=== PATIENT | female | born 1965 | race Caucasian/White ===

== ENCOUNTER 2017-04-20 15:01 | Emergency (ER) | payer OTHER ==
[~2017-04-20] VITALS: Ht 149.9 cm; Wt 45.6 kg
[~2017-04-20 15:01] MED LIST: ALBU17IN INH; CETI10TA PO; FLUO40CA PO; GUAI5ELAC PO; LEVA1TAB2 PO; LISI-538 PO; LISI5TAB OR; NEUR600T PO; PROZ20CA11 PO; TRAZ10TA PO
[2017-04-20] MEDS ORDERED: MEDR10TA PO (15:09)
[2017-04-20] MEDS ORDERED: HYDR-3713 PO (15:09)
[2017-04-20] MEDS ORDERED: methylPREDNISolone INJ 125 MG/2 ML VIAL (J2930) IM ONE (15:45)
[2017-04-20] MEDS ORDERED: IPRATROPIUM 0.5MG/ALBUTEROL 2.5MG INH SOL UD 3ML (DUONEB)(J7620) NEB ONE (15:45)
--- NOTE | 2017-04-20 16:18 | REP ---
Clinical: Wheezing and cough . Comparison: 08/29/2012 . Technique: PA and lateral. Findings: The mediastinum and cardiac silhouette are normal. The lung valdes demonstrate chronic changes and without acute consolidation, effusion, or pneumothorax. The skeletal structures are intact and normal. Impression: 1. No acute cardiopulmonary process. Signed by Dimas Bravo MD 04/20/2017 04:09 P
[2017-04-20] MEDS ORDERED: PRED20TA PO (16:51)
[2017-04-20] MEDS ORDERED: TESS100C PO (16:51)
[2017-04-20 16:58] VITALS: BP 117/72
== END 2017-04-20 17:10 | disposition home or self-care (01) ==
LOC: M ED 15:01
DX: J06.9 Acute upper respiratory infection, unspecified (principal); F17.200 Nicotine dependence, unspecified, uncomplicated; Z59.0 Homelessness; H92.01 Otalgia, right ear; I10 Essential (primary) hypertension; F32.9 Major depressive disorder, single episode, unspecified; F41.9 Anxiety disorder, unspecified; Z87.09 Personal history of other diseases of the respiratory system; Z79.899 Other long term (current) drug therapy

== ENCOUNTER 2017-04-29 14:30 | Emergency (ER) | payer OTHER ==
[~2017-04-29] VITALS: Ht 149.9 cm; Wt 45.1 kg
[~2017-04-29 14:30] MED LIST changes: +HYDR-3713 PO; +MEDR10TA PO; +PRED20TA PO; +TESS100C PO
[2017-04-29 14:31] VITALS: BP 142/83
[2017-04-29] MEDS ORDERED: AMOX875T PO (16:35)
[2017-04-29] MEDS ORDERED: NORCOTAB PO (16:35)
[2017-04-29] MEDS ORDERED: MAGIC MOUTHWASH SUSPENSION BTL SS ONE (16:45)
== END 2017-04-29 16:50 | disposition home or self-care (01) ==
LOC: M ED 14:30
DX: H66.91 Otitis media, unspecified, right ear (principal); K08.9 Disorder of teeth and supporting structures, unspecified; Z79.899 Other long term (current) drug therapy

== ENCOUNTER → 2017-05-02 | Outpatient (CLI) | payer OTHER ==
[~2017-05-02] MED LIST changes: +AMOX875T PO; +NORCOTAB PO
[2017-05-02 17:16] LABS: ALBUMIN 3.3 GM/DL (3.2-5.2); ALBUMIN/GLOBULIN RATIO 1.03 (1.00-1.93); ALKALINE PHOSPHATASE 62 U/L (45-117); ALT/SGPT 26 U/L (12-78); ANION GAP 4 MEQ/L (8-16); AST/SGOT 18 U/L (15-37); BILIRUBIN,TOTAL 0.2 MG/DL (0.2-1.0); BLOOD UREA NITROGEN 12 MG/DL (7-18); CALCIUM LEVEL 8.6 MG/DL (8.5-10.1); CARBON DIOXIDE LEVEL 30 MEQ/L (21-32); CHLORIDE LEVEL 107 MEQ/L (98-107); CHOLESTEROL LEVEL 174 MG/DL (<200); CREATININE FOR GFR 0.62 MG/DL (0.55-1.02); GLOMERULAR FILTRATION RATE > 60.0 (>51); GLUCOSE, FASTING 119 MG/DL (70-105); POTASSIUM SERUM 4.3 MEQ/L (3.5-5.1); SODIUM LEVEL 141 MEQ/L (136-145); TOTAL PROTEIN 6.5 GM/DL (6.4-8.2); TRIGLYCERIDES LEVEL 232 MG/DL (<150)
[2017-05-02 17:35] LABS: BASO # 0.1 K/mm3 (0.0-0.2); BASO % 0.7 % (0.0-1.0); EOS # 0.2 K/mm3 (0.0-0.50); EOS % 2.2 % (0.0-3.0); MEAN CORPUSCULAR HEMOGLOBIN 32.1 pg (27.0-33.0); MEAN CORPUSCULAR HGB CONC 33.2 g/dl (32.0-36.5); MEAN CORPUSCULAR VOLUME 96.8 fl (80.0-96.0); MONO # 0.3 K/mm3 (0.0-0.8); MONO % 3.4 % (0.0-5.0); NEUTROPHILS # 5.8 K/mm3 (1.8-7.7); NEUTROPHILS % 68.5 % (36.0-66.0); RED CELL DISTRIBUTION WIDTH 13.3 % (11.5-14.5); WHITE BLOOD COUNT 8.5 K/mm3 (4.0-10.0)
== END ==
LOC: M LAB 15:47
PROVIDERS: ATTEND Physician Assistant
DX: I10 Essential (primary) hypertension (principal); J30.9 Allergic rhinitis, unspecified; E55.9 Vitamin D deficiency, unspecified; Z72.0 Tobacco use

== ENCOUNTER → 2017-05-22 | Outpatient (CLI) | payer OTHER ==
[~2017-05-22] MED LIST changes: +GASTROGRAFIN SOLUTION 30ML (Q9963) As Ordered ONE; +ISOVUE-370 76% 100ML VIAL (Q9967) As Ordered ONE
--- NOTE | 2017-05-22 13:28 | REPMRS ---
Patient History The patient states she has not had a clinical breast exam in over a year. No known family history of cancer. Priors done at [facility] Digital Mammo Screening Bilat: May 22, 2017 - Exam #: [id number] Bilateral CC and MLO view(s) were taken. Technologist: Kesha Hinkle, Technologist FINDINGS: The breast tissue is extremely dense which could obscure a lesion on mammography. There has been no change in the appearance of the mammogram from the prior studies. There is a moderate amount of dense residual fibroglandular tissue which is fairly symmetric. There is no interval development of dominant mass, architectural distortion, or clustered microcalcification typical of malignancy. There are scattered, small, benign calcifications of doubtful clinical significance. No significant changes when compared with prior studies. ASSESSMENT: BI-RADS/ACR category 2 mammogram. Benign finding(s). Recommendation Routine screening mammogram in 1 year (for women over age 40). This mammogram was interpreted with the aid of an FDA-approved computer-aided dectection system. A. Negative x-ray reports should not delay biopsy if a dominant or clinically suspicious mass is present. B. Four to eight percent of cancers are not identified by mammography. C. Adenosis and dense breast may obscure an underlying neoplasm. Electronically Signed By: Victor Manuel Corbett MD 05/22/17 [id number]
--- NOTE | 2017-05-23 03:00 | REP ---
Clinical: Generalized abdominal pain and diarrhea. Technique: Axial contrast enhanced images from the lung bases to the pubic symphysis using oral and 100 ml Isovue 370 intravenous contrast material along with precontrast and delayed images of the abdomen with coronal and sagittal re-formations. Findings: Lung bases are clear. Visualized heart and pericardium are normal. Subcentimeter benign appearing hemangioma in the anterior segment right lobe of the liver is identified. No further hepatic lesions are appreciated. Spleen, pancreas, gallbladder, and bilateral adrenal glands are normal. The kidneys demonstrate mild areas of cortical scarring bilaterally (right greater than left) without further obvious urinary tract pathology. The enteric system is without obstruction or acute inflammatory process. Pelvis demonstrates normal bladder and age-appropriate uterus/adnexa. However subtle underlying myomatous changes to the uterus cannot be excluded. No pelvic fluid or ascites. No free air. No adenopathy. Atherosclerotic changes of the aorta and vasculature noted without obvious aneurysm or dissection. Musculoskeletal structures demonstrate age-related changes without focal osseous abnormality. Impression: 1. Benign-appearing subcentimeter hemangioma in the right lobe of the liver. 2. Cannot exclude myomatous changes to the uterus. 3. Moderate to significant atherosclerotic changes to the aorta and vasculature without aneurysm. Signed by Dimas Bravo MD 05/23/2017 02:52 A
== END ==
LOC: M RAD 11:46
PROVIDERS: ATTEND Physician Assistant
DX: Z12.31 Encounter for screening mammogram for malignant neoplasm of breast (principal); R19.7 Diarrhea, unspecified; R19.4 Change in bowel habit; N92.6 Irregular menstruation, unspecified; D18.03 Hemangioma of intra-abdominal structures
CPT/HCPCS: 74178; G0202

== ENCOUNTER → 2017-08-01 | Outpatient (CLI) | payer OTHER ==
[~2017-08-01] MED LIST changes: -GASTROGRAFIN SOLUTION 30ML (Q9963) As Ordered ONE; -ISOVUE-370 76% 100ML VIAL (Q9967) As Ordered ONE
--- NOTE | 2017-08-02 09:16 | ECGEPIP ---
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
== END ==
LOC: M EKG 13:05
PROVIDERS: ATTEND Family Medicine
DX: F11.20 Opioid dependence, uncomplicated (principal)

== ENCOUNTER 2017-12-14 17:40 | Emergency (ER) | payer OTHER ==
[2017-12-14] MEDS: LIDOCAINE 2% MDV 20 ML VIAL SC (19:00)
[2017-12-14] MEDS: CLINDAMYCIN 150 MG CAP PO (19:00)
[2017-12-14] MEDS: KETOROLAC 60 MG/2 ML VIAL (J1885) IM (19:15)
[2017-12-14] MEDS ORDERED: KETOROLAC 30 MG/ML VIAL (J1885) As Ordered (19:25)
== END 2017-12-14 20:19 | disposition home or self-care (01) ==
LOC: M ED 17:40
DX: L72.3 Sebaceous cyst (principal); I10 Essential (primary) hypertension; F33.9 Major depressive disorder, recurrent, unspecified; Z79.899 Other long term (current) drug therapy
CPT/HCPCS: J1885

== ENCOUNTER 2018-07-02 11:21 | Emergency (ER) | payer OTHER ==
[2018-07-02] MEDS: IPRATROPIUM 0.5MG/ALBUTEROL 2.5MG INH SOL UD 3ML (DUONEB)(J7620) NEB (12:31)
== END 2018-07-02 13:00 | disposition home or self-care (01) ==
LOC: M ED 11:21
DX: J44.1 Chronic obstructive pulmonary disease with (acute) exacerbation (principal); I10 Essential (primary) hypertension; F17.200 Nicotine dependence, unspecified, uncomplicated
CPT/HCPCS: 94640

== ENCOUNTER → 2018-07-12 | Outpatient (CLI) | payer OTHER ==
[2018-07-12 12:24] LABS: HEMATOCRIT 45.7 % (36.0-47.0); HEMOGLOBIN 15.3 g/dl (12.0-15.5); MEAN CORPUSCULAR HEMOGLOBIN 30.8 pg (27.0-33.0); MEAN CORPUSCULAR HGB CONC 33.5 g/dl (32.0-36.5); MEAN CORPUSCULAR VOLUME 92.1 fl (80.0-96.0); PLATELET COUNT, AUTOMATED 366 10^3/uL (150-450); RED BLOOD COUNT 4.96 10^6/uL (4.00-5.40); RED CELL DISTRIBUTION WIDTH 13.1 % (11.5-14.5); WHITE BLOOD COUNT 11.7 10^3/uL (4.0-10.0)
[2018-07-12 13:31] LABS: ALBUMIN 3.4 GM/DL (3.2-5.2); ALBUMIN/GLOBULIN RATIO 1.06 (1.00-1.93); ALKALINE PHOSPHATASE 68 U/L (45-117); ALT/SGPT 19 U/L (12-78); ANION GAP 9 MEQ/L (8-16); AST/SGOT 10 U/L (7-37); BILIRUBIN,TOTAL 0.3 MG/DL (0.2-1.0); BLOOD UREA NITROGEN 15 MG/DL (7-18); CALCIUM LEVEL 9.1 MG/DL (8.5-10.1); CARBON DIOXIDE LEVEL 29 MEQ/L (21-32); CHLORIDE LEVEL 103 MEQ/L (98-107); CREATININE FOR GFR 0.62 MG/DL (0.55-1.30); GLOMERULAR FILTRATION RATE > 60.0 (>51); GLUCOSE, FASTING 125 MG/DL (70-100); POTASSIUM SERUM 4.1 MEQ/L (3.5-5.1); SODIUM LEVEL 141 MEQ/L (136-145); TOTAL PROTEIN 6.6 GM/DL (6.4-8.2)
[2018-07-12 14:06] LABS: CHLAMYDIA DNA AMPLIFICATION NEGATIVE (NEGATIVE); GC DNA AMPLIFICATION NEGATIVE (NEGATIVE)
[2018-07-12 22:02] LABS: CONTROL LINE HCG INT CTR LINE PRESENT; HCG, SERUM QUALITATIVE NEGATIVE (NEGATIVE)
[2018-07-13 11:38] LABS: HEPATITIS B SURFACE ANTIGEN NEGATIVE (NEGATIVE)
[2018-07-13 12:05] LABS: HEPATITIS C VIRUS ABY INDEX 0.1 INDEX (<0.8)
[2018-07-13 12:06] LABS: HIV 1&2 SCREEN CENTAUR NEGATIVE (NEGATIVE)
== END ==
LOC: M LAB 11:45
DX: F11.20 Opioid dependence, uncomplicated (principal)
CPT/HCPCS: 93005

== ENCOUNTER → 2019-06-21 | Outpatient (CLI) | payer OTHER ==
[~2019-06-21] MED LIST changes: +CLEO300C2 PO; +DOXY100C37 PO; +GUAI1SOL7 PO; -GUAI5ELAC PO; +HYDR-3715 PO; +IBUP80TA PO; +IPRAINH INH; +NICO21DI31; -NORCOTAB PO; +SUBO12MI SL; -TRAZ10TA PO; +TRAZ1TAB12 PO
[2019-06-21 13:33] LABS: HEMATOCRIT 43.4 % (36.0-47.0); HEMOGLOBIN 14.5 g/dl (12.0-15.5); MEAN CORPUSCULAR HEMOGLOBIN 30.7 pg (27.0-33.0); MEAN CORPUSCULAR HGB CONC 33.4 g/dl (32.0-36.5); MEAN CORPUSCULAR VOLUME 91.9 fl (80.0-96.0); PLATELET COUNT, AUTOMATED 228 10^3/uL (150-450); RED BLOOD COUNT 4.72 10^6/uL (4.00-5.40); WHITE BLOOD COUNT 7.2 10^3/uL (4.0-10.0)
--- NOTE | 2019-06-21 13:37 | ECGEPIP ---
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
[2019-06-21 14:00] LABS: ALBUMIN 3.6 GM/DL (3.2-5.2); ALT/SGPT 18 U/L (12-78); BILIRUBIN,TOTAL 0.3 MG/DL (0.2-1.0); BLOOD UREA NITROGEN 12 MG/DL (7-18); CALCIUM LEVEL 8.7 MG/DL (8.5-10.1); CARBON DIOXIDE LEVEL 28 MEQ/L (21-32); CHLORIDE LEVEL 108 MEQ/L (98-107); CREATININE FOR GFR 0.56 MG/DL (0.55-1.30); GLOMERULAR FILTRATION RATE > 60.0 (>51); GLUCOSE, FASTING 111 MG/DL (70-100); POTASSIUM SERUM 3.9 MEQ/L (3.5-5.1); SODIUM LEVEL 142 MEQ/L (136-145); TOTAL PROTEIN 6.4 GM/DL (6.4-8.2)
[2019-06-21 14:02] LABS: HCG, SERUM QUALITATIVE NEGATIVE (NEGATIVE)
[2019-06-21 14:20] LABS: HEPATITIS B SURFACE ANTIGEN NEGATIVE (NEGATIVE)
[2019-06-21 14:48] LABS: HEPATITIS C VIRUS ABY INDEX < 0.0 INDEX (<0.8)
[2019-06-21 14:49] LABS: HIV 1&2 SCREEN CENTAUR NEGATIVE (NEGATIVE)
[2019-06-21 16:06] LABS: CHLAMYDIA DNA AMPLIFICATION NEGATIVE (NEGATIVE); GC DNA AMPLIFICATION NEGATIVE (NEGATIVE)
== END ==
LOC: M LAB 12:40
PROVIDERS: ATTEND Family Medicine
DX: F11.20 Opioid dependence, uncomplicated (principal)

== ENCOUNTER → 2019-12-18 | Outpatient (REF) | payer OTHER, MEDICAID ==
[2019-12-18 17:12] LABS: BASO # 0.1 10^3/uL (0.0-0.2); BASO % 0.9 % (0.0-1.0); EOS # 0.2 10^3/uL (0.0-0.5); EOS % 3.1 % (0.0-3.0); HEMATOCRIT 49.7 % (36.0-47.0); HEMOGLOBIN 16.5 g/dl (12.0-15.5); LYMPH # 2.2 10^3/uL (1.5-5.0); LYMPH % 32.5 % (24.0-44.0); MEAN CORPUSCULAR HEMOGLOBIN 30.4 pg (27.0-33.0); MEAN CORPUSCULAR HGB CONC 33.2 g/dl (32.0-36.5); MEAN CORPUSCULAR VOLUME 91.7 fl (80.0-96.0); MONO # 0.6 10^3/uL (0.0-0.8); MONO % 8.5 % (0.0-5.0); NEUTROPHILS # 3.7 10^3/uL (1.5-8.5); NEUTROPHILS % 54.9 % (36.0-66.0); PLATELET COUNT, AUTOMATED 208 10^3/uL (150-450); RED BLOOD COUNT 5.42 10^6/uL (4.00-5.40); WHITE BLOOD COUNT 6.7 10^3/uL (4.0-10.0)
[2019-12-18 17:22] LABS: ALBUMIN 4.1 GM/DL (3.2-5.2); ALT/SGPT 24 U/L (12-78); BILIRUBIN,TOTAL 0.5 MG/DL (0.2-1.0); BLOOD UREA NITROGEN 13 MG/DL (7-18); CALCIUM LEVEL 9.2 MG/DL (8.5-10.1); CARBON DIOXIDE LEVEL 26 MEQ/L (21-32); CHLORIDE LEVEL 107 MEQ/L (98-107); CHOLESTEROL LEVEL 226 MG/DL (<200); CHOLESTEROL RISK RATIO 3.323 (<5); CREATININE FOR GFR 0.58 MG/DL (0.55-1.30); GLOMERULAR FILTRATION RATE > 60.0 (>51); GLUCOSE, FASTING 94 MG/DL (70-100); HDL CHOLESTEROL 68 MG/DL (>40); LDL CHOLESTEROL 145 MG/DL (<100); NON-HDL-C 158 MG/DL; POTASSIUM SERUM 4.1 MEQ/L (3.5-5.1); SODIUM LEVEL 140 MEQ/L (136-145); TRIGLYCERIDES LEVEL 66 MG/DL (<150)
== END ==
LOC: M LAB REF 15:51
PROVIDERS: ATTEND Family Medicine
DX: Z13.228 Encounter for screening for other metabolic disorders (principal)

== ENCOUNTER → 2020-07-21 | Outpatient (REF) | payer OTHER ==
[~2020-07-21] MED LIST changes: +ALBU8.5H INH; +SUBO2MIS SL
[2020-07-21 13:05] LABS: APPEARANCE, URINE CLEAR (CLEAR); BACTERIA, URINE AUTO NEGATIVE (NEGATIVE); BILIRUBIN, URINE AUTO NEGATIVE (NEGATIVE); BLOOD, URINE BLOOD NEGATIVE (NEGATIVE); COLOR, URINE YELLOW (YELLOW); GLUCOSE, URINE (UA) AUTO NEGATIVE (NEGATIVE); KETONE, URINE AUTO NEGATIVE (NEGATIVE); LEUKOCYTE ESTERASE, URINE AUTO NEGATIVE (NEGATIVE); NITRITE, URINE AUTO NEGATIVE (NEGATIVE); PROTEIN, URINE AUTO NEGATIVE (NEGATIVE); RBC, URINE AUTO 0 /HPF (0-3); SPECIFIC GRAVITY URINE AUTO 1.005 (1.002-1.035); SQUAMOUS EPITHELIAL CELL UR AU 1 /HPF (0-6); UROBILINOGEN, URINE AUTO 0.2 mg/dL (0.0-2.0); WBC, URINE AUTO 0 /HPF (0-3)
== END ==
LOC: M LAB REF 12:16
PROVIDERS: ATTEND Nurse Practitioner Family
DX: I10 Essential (primary) hypertension (principal); E78.5 Hyperlipidemia, unspecified; R73.03 Prediabetes; Z13.9 Encounter for screening, unspecified; F17.200 Nicotine dependence, unspecified, uncomplicated; M25.50 Pain in unspecified joint; F11.21 Opioid dependence, in remission

== ENCOUNTER → 2020-07-21 | Outpatient (REF) | payer OTHER ==
[2020-07-21 17:17] LABS: BASO # 0.1 10^3/uL (0.0-0.2); BASO % 1.1 % (0.0-1.0); EOS # 0.1 10^3/uL (0.0-0.5); EOS % 1.9 % (0.0-3.0); HEMATOCRIT 49.8 % (36.0-47.0); HEMOGLOBIN 16.8 g/dl (12.0-15.5); LYMPH # 1.9 10^3/uL (1.5-5.0); LYMPH % 25.7 % (24.0-44.0); MEAN CORPUSCULAR HEMOGLOBIN 30.7 pg (27.0-33.0); MEAN CORPUSCULAR HGB CONC 33.7 g/dl (32.0-36.5); MEAN CORPUSCULAR VOLUME 90.9 fl (80.0-96.0); MONO # 0.4 10^3/uL (0.0-0.8); MONO % 5.6 % (0.0-5.0); NEUTROPHILS # 4.8 10^3/uL (1.5-8.5); NEUTROPHILS % 65.4 % (36.0-66.0); PLATELET COUNT, AUTOMATED 269 10^3/uL (150-450); RED BLOOD COUNT 5.48 10^6/uL (4.00-5.40); WHITE BLOOD COUNT 7.3 10^3/uL (4.0-10.0)
[2020-07-21 19:02] LABS: HEMOGLOBIN A1c 5.6 %
[2020-07-21 19:57] LABS: ALT/SGPT 22 U/L (12-78); BILIRUBIN,TOTAL 0.3 MG/DL (0.2-1.0); BLOOD UREA NITROGEN 10 MG/DL (7-18); CALCIUM LEVEL 9.4 MG/DL (8.5-10.1); CARBON DIOXIDE LEVEL 27 MEQ/L (21-32); CHLORIDE LEVEL 104 MEQ/L (98-107); CHOLESTEROL LEVEL 213 MG/DL (<200); CHOLESTEROL RISK RATIO 3.435 (<5); CREATININE FOR GFR 0.55 MG/DL (0.55-1.30); FREE T4 0.99 NG/DL (0.76-1.46); GLOMERULAR FILTRATION RATE > 60.0 (>51); GLUCOSE, FASTING 92 MG/DL (70-100); HDL CHOLESTEROL 62 MG/DL (>40); LDL CHOLESTEROL 134 MG/DL (<100); NON-HDL-C 151 MG/DL; POTASSIUM SERUM 4.4 MEQ/L (3.5-5.1); SODIUM LEVEL 138 MEQ/L (136-145); TOTAL PROTEIN 7.4 GM/DL (6.4-8.2); TRIGLYCERIDES LEVEL 87 MG/DL (<150)
[2020-07-22 13:43] LABS: TOTAL 25(OH) VITAMIN D 15.8 NG/ML (30.0-100.0)
== END ==
LOC: M LAB REF 16:16
PROVIDERS: ATTEND Nurse Practitioner Family
DX: E78.5 Hyperlipidemia, unspecified (principal); I10 Essential (primary) hypertension; R73.03 Prediabetes; Z13.9 Encounter for screening, unspecified; F17.200 Nicotine dependence, unspecified, uncomplicated; M25.50 Pain in unspecified joint; F11.21 Opioid dependence, in remission

== ENCOUNTER → 2020-10-29 | Outpatient (CLI) | payer OTHER ==
[~2020-10-29] MED LIST changes: +NICO1DIS12; -NICO21DI31
[2020-10-29 14:24] LABS: HEMATOCRIT 49.4 % (36.0-47.0); HEMOGLOBIN 16.2 g/dl (12.0-15.5); MEAN CORPUSCULAR HEMOGLOBIN 29.6 pg (27.0-33.0); MEAN CORPUSCULAR HGB CONC 32.8 g/dl (32.0-36.5); MEAN CORPUSCULAR VOLUME 90.3 fl (80.0-96.0); PLATELET COUNT, AUTOMATED 238 10^3/uL (150-450); RED BLOOD COUNT 5.47 10^6/uL (4.00-5.40); WHITE BLOOD COUNT 6.3 10^3/uL (4.0-10.0)
[2020-10-29 14:59] LABS: ALBUMIN 3.9 GM/DL (3.2-5.2); ALT/SGPT 24 U/L (12-78); BILIRUBIN,TOTAL 0.4 MG/DL (0.2-1.0); BLOOD UREA NITROGEN 10 MG/DL (7-18); CALCIUM LEVEL 9.1 MG/DL (8.5-10.1); CARBON DIOXIDE LEVEL 31 MEQ/L (21-32); CHLORIDE LEVEL 105 MEQ/L (98-107); CREATININE FOR GFR 0.55 MG/DL (0.55-1.30); GLOMERULAR FILTRATION RATE > 60.0 (>51); GLUCOSE, FASTING 84 MG/DL (70-100); HCG, SERUM QUANTITATIVE 2 MIU/ML; POTASSIUM SERUM 3.9 MEQ/L (3.5-5.1); SODIUM LEVEL 139 MEQ/L (136-145); TOTAL PROTEIN 6.9 GM/DL (6.4-8.2)
[2020-10-29 15:16] LABS: HEPATITIS B SURFACE ANTIGEN NEGATIVE (NEGATIVE)
[2020-10-29 15:44] LABS: HEPATITIS C VIRUS ABY INDEX 0.1 INDEX (<0.8)
[2020-10-29 15:45] LABS: HIV 1&2 SCREEN CENTAUR NEGATIVE (NEGATIVE)
== END ==
LOC: M LAB 12:08
PROVIDERS: ATTEND Family Medicine
DX: F11.11 Opioid abuse, in remission (principal)

== ENCOUNTER → 2020-12-22 | Outpatient (CLI) | payer OTHER ==
[~2020-12-22] MED LIST changes: -LISI-538 PO; +LISI20TA33 PO
[2020-12-22 12:12] LABS: HEMATOCRIT 46.7 % (36.0-47.0); HEMOGLOBIN 15.4 g/dl (12.0-15.5); MEAN CORPUSCULAR HEMOGLOBIN 30.4 pg (27.0-33.0); MEAN CORPUSCULAR VOLUME 92.3 fl (80.0-96.0); PLATELET COUNT, AUTOMATED 234 10^3/uL (150-450); RED BLOOD COUNT 5.06 10^6/uL (4.00-5.40); WHITE BLOOD COUNT 7.9 10^3/uL (4.0-10.0)
[2020-12-22 12:43] LABS: ALT/SGPT 23 U/L (12-78); BILIRUBIN,TOTAL 0.2 MG/DL (0.2-1.0); BLOOD UREA NITROGEN 14 MG/DL (7-18); CALCIUM LEVEL 9.1 MG/DL (8.5-10.1); CARBON DIOXIDE LEVEL 32 MEQ/L (21-32); CHLORIDE LEVEL 105 MEQ/L (98-107); CREATININE FOR GFR 0.62 MG/DL (0.55-1.30); GLOMERULAR FILTRATION RATE > 60.0 (>51); GLUCOSE, FASTING 98 MG/DL (70-100); POTASSIUM SERUM 3.7 MEQ/L (3.5-5.1); SODIUM LEVEL 142 MEQ/L (136-145); TOTAL PROTEIN 6.9 GM/DL (6.4-8.2)
[2020-12-22 12:53] LABS: HCG, SERUM QUALITATIVE NEGATIVE (NEGATIVE)
[2020-12-22 13:02] LABS: HEPATITIS B SURFACE ANTIGEN NEGATIVE (NEGATIVE)
[2020-12-22 13:29] LABS: HEPATITIS C VIRUS ABY INDEX < 0.0 INDEX (<0.8)
[2020-12-22 13:30] LABS: HIV 1&2 SCREEN CENTAUR NEGATIVE (NEGATIVE)
--- NOTE | 2020-12-22 19:42 | ECGEPIP ---
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
== END ==
LOC: M LAB 11:39
PROVIDERS: ATTEND Family Medicine
DX: F11.20 Opioid dependence, uncomplicated (principal)

== ENCOUNTER → 2021-01-26 | Outpatient (CLI) | payer OTHER ==
--- NOTE | 2021-01-26 10:52 | REP ---
INDICATION: SHORTNESS OF BREATH, PFT 1ST THEN XR COMPARISON: 04/20/2017 TECHNIQUE: PA and lateral. FINDINGS: The mediastinum and cardiac silhouette are normal. A vague right middle lobe infiltrate cannot be excluded. No further consolidation, effusion, or pneumothorax. IMPRESSION: Cannot exclude vague right middle lobe opacity. Correlation with physical examination/auscultation recommended along with follow-up CT if the patient remains symptomatic. <Electronically signed by Dimas Bravo > 01/26/21 [id number]
--- NOTE | 2021-01-26 11:04 | PFTRPT ---
Height: 59.00 Inches Weight: 120.00 Lbs BSA: 1.48 Diagnosis: R06.02 DATE: 01/26/2021 ORDERING PHYSICIAN: Ally Guerra NP Pre and post bronchodilator studies have excellent technical quality. Forced vital capacity is reduced. FEV1 is out of proportion. Obstructive index is therefore reduced. Expiratory limit of the flow-volume loop consistent with flow rate limitation. Very favorable bronchodilator response is identified. Total lung capacity is elevated. Residual volume consistent with air trapping. Diffusing capacity is significantly reduced and does not correct for alveolar volume. Hemoglobin is acceptable at 13.8. Airway resistance elevated with concomitant decrease in airway conductance. IMPRESSION: At least moderate obstructive ventilatory impairment with underlying air trapping and diffusing capacity impairment suggesting emphysema. Favorable bronchodilator response. Please correlate clinically. MTDD
== END ==
LOC: M CARPUL 10:14
PROVIDERS: ATTEND Nurse Practitioner Adult Health
DX: R06.02 Shortness of breath (principal)

== ENCOUNTER → 2021-03-05 | Outpatient (REF) | payer OTHER ==
[2021-03-05 11:56] LABS: BASO # 0.1 10^3/uL (0.0-0.2); BASO % 0.6 % (0.0-1.0); EOS # 0.1 10^3/uL (0.0-0.5); EOS % 1.3 % (0.0-3.0); HEMOGLOBIN 15.7 g/dl (12.0-15.5); LYMPH # 1.7 10^3/uL (1.5-5.0); LYMPH % 20.1 % (24.0-44.0); MEAN CORPUSCULAR HEMOGLOBIN 30.8 pg (27.0-33.0); MEAN CORPUSCULAR HGB CONC 33.4 g/dl (32.0-36.5); MEAN CORPUSCULAR VOLUME 92.3 fl (80.0-96.0); MONO # 0.6 10^3/uL (0.0-0.8); NEUTROPHILS # 6.1 10^3/uL (1.5-8.5); NEUTROPHILS % 70.9 % (36.0-66.0); PLATELET COUNT, AUTOMATED 241 10^3/uL (150-450); RED BLOOD COUNT 5.09 10^6/uL (4.00-5.40); WHITE BLOOD COUNT 8.6 10^3/uL (4.0-10.0)
[2021-03-05 12:40] LABS: HEMOGLOBIN A1c 5.8 %
[2021-03-05 12:46] LABS: ALBUMIN 3.6 GM/DL (3.2-5.2); ALT/SGPT 18 U/L (12-78); BILIRUBIN,TOTAL 0.4 MG/DL (0.2-1.0); BLOOD UREA NITROGEN 9 MG/DL (7-18); CALCIUM LEVEL 9.4 MG/DL (8.5-10.1); CARBON DIOXIDE LEVEL 30 MEQ/L (21-32); CHLORIDE LEVEL 105 MEQ/L (98-107); CHOLESTEROL LEVEL 181 MG/DL (<200); CHOLESTEROL RISK RATIO 3.016 (<5); CREATININE FOR GFR 0.48 MG/DL (0.55-1.30); FREE T4 0.99 NG/DL (0.76-1.46); GLOMERULAR FILTRATION RATE > 60.0 (>51); GLUCOSE, FASTING 100 MG/DL (70-100); HDL CHOLESTEROL 60 MG/DL (>40); LDL CHOLESTEROL 106 MG/DL (<100); NON-HDL-C 121 MG/DL; SODIUM LEVEL 139 MEQ/L (136-145); TOTAL 25(OH) VITAMIN D 14.8 NG/ML (30.0-100.0); TOTAL PROTEIN 6.9 GM/DL (6.4-8.2); TRIGLYCERIDES LEVEL 73 MG/DL (<150)
== END ==
LOC: M LAB REF 11:25
PROVIDERS: ATTEND Nurse Practitioner Family
DX: E78.5 Hyperlipidemia, unspecified (principal); F17.200 Nicotine dependence, unspecified, uncomplicated; R73.03 Prediabetes

== ENCOUNTER 2022-03-06 05:18 | Emergency (ER) | payer OTHER ==
[~2022-03-06] VITALS: Ht 149.9 cm; Wt 50.0 kg
[~2022-03-06 05:18] MED LIST changes: +DOXY-443 PO; -DOXY100C37 PO
[2022-03-06] MEDS ORDERED: SENN-83 (06:17)
[2022-03-06] MEDS ORDERED: FLUO20CA22 (06:17)
[2022-03-06] MEDS ORDERED: KETOROLAC 30 MG/ML 1ML VIAL IV ONE (06:45)
[2022-03-06] MEDS ORDERED: ONDANSETRON 4MG/2ML VIAL IV ONE (06:45)
[2022-03-06] MEDS ORDERED: NS 1,000 ML IV ONE (06:45)
[2022-03-06 06:54] LABS: BASO # 0.1 10^3/uL (0.0-0.2); BASO % 0.6 % (0.0-1.0); EOS # 0.1 10^3/uL (0.0-0.5); HEMOGLOBIN 16.5 g/dl (12.0-15.5); LYMPH # 1.9 10^3/uL (1.5-5.0); LYMPH % 15.8 % (24.0-44.0); MEAN CORPUSCULAR HEMOGLOBIN 30.6 pg (27.0-33.0); MEAN CORPUSCULAR HGB CONC 33.7 g/dl (32.0-36.5); MEAN CORPUSCULAR VOLUME 90.9 fl (80.0-96.0); MONO # 0.6 10^3/uL (0.0-0.8); MONO % 4.6 % (2.0-8.0); NEUTROPHILS # 9.6 10^3/uL (1.5-8.5); NEUTROPHILS % 77.8 % (36.0-66.0); PLATELET COUNT, AUTOMATED 257 10^3/uL (150-450); RED BLOOD COUNT 5.39 10^6/uL (4.00-5.40); WHITE BLOOD COUNT 12.3 10^3/uL (4.0-10.0)
[2022-03-06 07:52] LABS: ALBUMIN 4.3 GM/DL (3.2-5.2); ALT/SGPT 22 U/L (12-78); BILIRUBIN,DIRECT < 0.1 MG/DL (0.0-0.2); BILIRUBIN,TOTAL 0.3 MG/DL (0.2-1.0); BLOOD UREA NITROGEN 11 MG/DL (7-18); CALCIUM LEVEL 9.7 MG/DL (8.5-10.1); CARBON DIOXIDE LEVEL 33 MEQ/L (21-32); CHLORIDE LEVEL 104 MEQ/L (98-107); CREATININE FOR GFR 0.71 MG/DL (0.55-1.30); GLOMERULAR FILTRATION RATE > 60.0 (>51); GLUCOSE, FASTING 163 MG/DL (70-100); LIPASE 63 U/L (73-393); POTASSIUM SERUM 4.7 MEQ/L (3.5-5.1); SODIUM LEVEL 138 MEQ/L (136-145); TOTAL PROTEIN 8.4 GM/DL (6.4-8.2)
[2022-03-06 08:04] LABS: AMPHETAMINES LEVEL URINE NEGATIVE (NEGATIVE); BARBITURATES URINE NEGATIVE (NEGATIVE); BENZODIAZEPINES URINE NEGATIVE (NEGATIVE); CANNABINOIDS URINE NEGATIVE (NEGATIVE); COCAINE METABOLITE URINE NEGATIVE (NEGATIVE); METHADONE URINE NEGATIVE (NEGATIVE); OPIATES URINE NEGATIVE (NEGATIVE); PHENCYCLIDINE URINE NEGATIVE (NEGATIVE)
[2022-03-06] MEDS ORDERED: ISOVUE-370 76% 100ML VIAL As Ordered ONE (08:25)
[2022-03-06] MEDS ORDERED: ONDA4TAB6 PO (09:25)
[2022-03-06 09:55] VITALS: BP 170/84
== END 2022-03-06 10:11 | disposition home or self-care (01) ==
LOC: M ED 05:18
DX: K56.7 Ileus, unspecified (principal); K52.9 Noninfective gastroenteritis and colitis, unspecified; D35.00 Benign neoplasm of unspecified adrenal gland; R00.1 Bradycardia, unspecified; M43.16 Spondylolisthesis, lumbar region; I10 Essential (primary) hypertension; K59.00 Constipation, unspecified; F11.20 Opioid dependence, uncomplicated; M54.9 Dorsalgia, unspecified; F32.A Depression, unspecified; F17.200 Nicotine dependence, unspecified, uncomplicated; Z79.51 Long term (current) use of inhaled steroids; Z79.899 Other long term (current) drug therapy
CPT/HCPCS: 74177; 80048; 80076; 80307; 81001; 83690; 85025; 93005; 96361; 96374; 96375; 99284; J1885; J2405; Q9967

== ENCOUNTER 2022-03-17 15:36 | Inpatient (IN) | payer OTHER ==
[~2022-03-17] VITALS: Ht 149.9 cm; Wt 47.2 kg
[~2022-03-17 15:36] MED LIST changes: +FLUO20CA22 PO; +ONDA4TAB6 PO; +SENN-83 PO
[2022-03-17 17:40] LABS: HEMATOCRIT 43.4 % (36.0-47.0); HEMOGLOBIN 14.9 g/dl (12.0-15.5); MEAN CORPUSCULAR HEMOGLOBIN 29.6 pg (27.0-33.0); MEAN CORPUSCULAR HGB CONC 34.3 g/dl (32.0-36.5); MEAN CORPUSCULAR VOLUME 86.3 fl (80.0-96.0); PLATELET COUNT, AUTOMATED 299 10^3/uL (150-450); RED BLOOD COUNT 5.03 10^6/uL (4.00-5.40); WHITE BLOOD COUNT 7.9 10^3/uL (4.0-10.0)
[2022-03-17] MEDS ORDERED: NS 1,000 ML IV ONE ×2 (18:15→19:05)
[2022-03-17 18:22] LABS: LYMPHOCYTES 2 % (16-44); MB/CK RELATIVE INDEX 2.18 (< OR =4); MONOCYTES 3 % (0-5); NEUTROPHILS 92 % (28-66); PLATELET ESTIMATE NORMAL (NORMAL)
[2022-03-17 18:27] LABS: ALBUMIN 2.6 GM/DL (3.2-5.2); BILIRUBIN,DIRECT 0.2 MG/DL (0.0-0.2); BILIRUBIN,TOTAL 0.6 MG/DL (0.2-1.0); CALCIUM LEVEL 6.8 MG/DL (8.5-10.1); CREATININE FOR GFR 5.88 MG/DL (0.55-1.30); GLOMERULAR FILTRATION RATE 7.9 (>51); POTASSIUM SERUM 4.4 MEQ/L (3.5-5.1); TOTAL PROTEIN 5.9 GM/DL (6.4-8.2)
[2022-03-17 18:32] LABS: RSV AMPLIFICATION NEGATIVE (NEGATIVE)
[2022-03-17] MEDS ORDERED: GLUCOSE 4GM CHEW TABLET PO PRN (19:05)
[2022-03-17] MEDS ORDERED: DEXTROSE 50% 50 ML SYRINGE IV PRN (19:05)
[2022-03-17] MEDS ORDERED: MORPHINE 4 MG/ML 1ML VIAL/SYRINGE IV PRN (19:05)
[2022-03-17] MEDS ORDERED: GLUCAGON INJ 1MG VIAL SC PRN (19:05)
[2022-03-17] MEDS ORDERED: ONDANSETRON 4MG 2ML VIAL IV PRN (19:05)
[2022-03-17 19:54] LABS: OSMOLALITY URINE 379 MOSM/KG (50-1400)
[2022-03-17 20:06] LABS: INR 1.13; PROTHROMBIN TIME 14.9 SECONDS (12.7-14.5)
[2022-03-17 20:07] LABS: PARTIAL THROMBOPLASTIN TIME 27.1 SECONDS (25.9-37.0)
[2022-03-17 20:12] LABS: SODIUM,RANDOM URINE < 10 MEQ/L; TOTAL PROTEIN,RANDOM URINE 75.8 MG/DL (0.0-12.0)
[2022-03-17] MEDS ORDERED: BUPR1FIL35 SL (20:36)
[2022-03-17] MEDS ORDERED: ONDA4TAB6 PO (20:36)
[2022-03-17] MEDS ORDERED: GABA600T4 PO (20:36)
[2022-03-17] MEDS ORDERED: HYDR-3363 PO (20:36)
[2022-03-17] MEDS ORDERED: BUPR1FIL3 SL (20:36)
[2022-03-17] MEDS ORDERED: HOME MED LIST COMPLETE! XX SCH (20:40)
[2022-03-17] MEDS ORDERED: ALBUTEROL 90 MCG/ACT 8GM HFA INHALER INH PRN (20:45)
[2022-03-17] MEDS: NS 1,000 ML IV SCH ×2 (21:25→22:19)
[2022-03-17] MEDS: PIPERACILLIN/TAZOBACTAM SOD 2.25 GM in D5W MINI-BAG PLUS 50 ML IV SCH (21:26)
[2022-03-17 23:00] VITALS: BP 80/40
[2022-03-17] MEDS ORDERED: NS 500 ML IV ONE (23:25)
[2022-03-17] MEDS ORDERED: CALCIUM GLUCONATE 1,000 MG in D5W MINI-BAG PLUS 100 ML IV STA (23:35)
[2022-03-17] MEDS ORDERED: CALCIUM GLUCONATE 1,000MG/10ML VIAL (100MG/ML) (J0610) As Ordered ONE (23:37)
[2022-03-17 23:43] LABS: CALCIUM LEVEL 6.8 MG/DL (8.5-10.1); CREATININE FOR GFR 4.85 MG/DL (0.55-1.30); GLOMERULAR FILTRATION RATE 9.9 (>51); POTASSIUM SERUM 3.9 MEQ/L (3.5-5.1)
[2022-03-17] MEDS ORDERED: NALOXONE INJ 0.4MG/1ML VIAL (J2310 PER 1MG) IV STA (23:49)
[2022-03-18] VITALS (56 sets, daily range): BP systolic 60–125; BP diastolic 38–72; O2SAT 84–98
[2022-03-18] MEDS ORDERED: NALOXONE INJ 0.4MG/1ML VIAL (J2310 PER 1MG) IV STA (00:10)
[2022-03-18] MEDS ORDERED: CALCIUM GLUCONATE 1,000 MG in D5W MINI-BAG PLUS 100 ML IV ONE ×2 (00:25→18:00)
[2022-03-18] MEDS: PIPERACILLIN/TAZOBACTAM SOD 2.25 GM in D5W MINI-BAG PLUS 50 ML IV SCH ×3 (04:52→21:29)
[2022-03-18 06:17] LABS: HEMATOCRIT 37.7 % (36.0-47.0); HEMOGLOBIN 13.3 g/dl (12.0-15.5); MEAN CORPUSCULAR HGB CONC 35.3 g/dl (32.0-36.5); MEAN CORPUSCULAR VOLUME 85.1 fl (80.0-96.0); PLATELET COUNT, AUTOMATED 202 10^3/uL (150-450); RED BLOOD COUNT 4.43 10^6/uL (4.00-5.40)
[2022-03-18 06:57] LABS: BILIRUBIN,DIRECT 0.2 MG/DL (0.0-0.2); BILIRUBIN,TOTAL 0.4 MG/DL (0.2-1.0); CALCIUM LEVEL 7.4 MG/DL (8.5-10.1); CREATININE FOR GFR 3.64 MG/DL (0.55-1.30); GLOMERULAR FILTRATION RATE 13.8 (>51); MAGNESIUM LEVEL 2.5 MG/DL (1.8-2.4); POTASSIUM SERUM 3.3 MEQ/L (3.5-5.1); TOTAL PROTEIN 4.7 GM/DL (6.4-8.2)
[2022-03-18] MEDS: NS 1,000 ML IV SCH (08:34)
[2022-03-18] MEDS ORDERED: BUPRENORPHINE/NALOXONE 8-2MG SUBLINGUAL TABLET(SUBOXONE) SL SCH (09:00)
[2022-03-18] MEDS ORDERED: BUPRENORPHINE/NALOXONE 2-0.5MG SUBLINGUAL TABLET(SUBOXONE) SL SCH (09:00)
[2022-03-18] MEDS ORDERED: FLUBLOK(EGG FREE)(QUAD)INFLUENZA VACC 0.5ML SYRINGE 18YRS & OLDER IM ONE (09:00)
[2022-03-18] MEDS: LR 1,000 ML IV SCH ×3 (09:40→19:15)
[2022-03-18 10:52] LABS: ABG BASE EXCESS 2.1 (-2.0-2.0); ABG HCO3 24.9 MEQ/L (22.0-26.0); ABG O2 SATURATION 94.9 % (95.0-99.0); ABG PARTIAL PRESSURE CO2 33.4 mmHg (35.0-45.0); ABG PARTIAL PRESSURE O2 72.2 mmHg (75.0-100.0); ABG STANDARD HCO3 26.3 MEQ/L (22.0-26.0); ABG TOTAL CO2 25.9 MEQ/L (22.0-29.0)
[2022-03-18] MEDS: POTASSIUM CHLORIDE INJ 10 MEQ in NS 0.45% 1,000 ML IV SCH ×2 (12:00→12:24)
[2022-03-18 12:15] LABS: ALBUMIN 2.2 GM/DL (3.2-5.2); CALCIUM LEVEL 7.4 MG/DL (8.5-10.1); CREATININE FOR GFR 2.94 MG/DL (0.55-1.30); CREATININE FOR GFR 2.96 MG/DL (0.55-1.30); GLOMERULAR FILTRATION RATE 17.5 (>51); GLOMERULAR FILTRATION RATE 17.7 (>51); PHOSPHORUS LEVEL 5.1 MG/DL (2.5-4.9); POTASSIUM SERUM 2.9 MEQ/L (3.5-5.1)
[2022-03-18] MEDS: KCL 10MEQ/100ML SWI (KRUN) 10 MEQ in IV 1 EA IV SCH ×2 (12:49→14:05)
[2022-03-18] MEDS ORDERED: NS 1,000 ML IV ONE (16:45)
[2022-03-18 17:05] LABS: ALBUMIN 1.9 GM/DL (3.2-5.2); CALCIUM LEVEL 7.5 MG/DL (8.5-10.1); CREATININE FOR GFR 2.95 MG/DL (0.55-1.30); GLOMERULAR FILTRATION RATE 17.6 (>51); PHOSPHORUS LEVEL 4.4 MG/DL (2.5-4.9); POTASSIUM SERUM 3.4 MEQ/L (3.5-5.1)
[2022-03-18 17:14] LABS: ABG HCO3 30.7 MEQ/L (22.0-26.0); ABG O2 SATURATION 96.4 % (95.0-99.0); ABG PARTIAL PRESSURE CO2 40.3 mmHg (35.0-45.0); ABG STANDARD HCO3 30.8 MEQ/L (22.0-26.0)
[2022-03-18] MEDS ORDERED: NS 0.45% 1,000 ML IV ONE (17:15)
[2022-03-18] MEDS ORDERED: NOREPINEPHRINE 4 MG/4 ML AMP As Ordered ONE (18:17)
[2022-03-18] MEDS ORDERED: NOREPINEPHRINE BITARTRATE 8 MG in D5W 500 ML IV SCH (18:25)
[2022-03-18 19:14] LABS: HEMATOCRIT 38.3 % (36.0-47.0); HEMOGLOBIN 13.7 g/dl (12.0-15.5); MEAN CORPUSCULAR HEMOGLOBIN 30.5 pg (27.0-33.0); MEAN CORPUSCULAR HGB CONC 35.8 g/dl (32.0-36.5); MEAN CORPUSCULAR VOLUME 85.3 fl (80.0-96.0); PLATELET COUNT, AUTOMATED 223 10^3/uL (150-450); RED BLOOD COUNT 4.49 10^6/uL (4.00-5.40)
[2022-03-18 19:37] LABS: CALCIUM LEVEL 7.3 MG/DL (8.5-10.1); CREATININE FOR GFR 2.8 MG/DL (0.55-1.30); GLOMERULAR FILTRATION RATE 18.7 (>51)
[2022-03-18 19:39] LABS: AMYLASE 13 U/L (25-115); LIPASE 25 U/L (73-393)
[2022-03-18 20:03] LABS: ATYPICAL LYMPH 1 % (0-5); LYMPHOCYTES 3 % (16-44); METAMYELOCYTES 5 % (0-0); MONOCYTES 3 % (0-5); MYELOCYTES 2 % (0-0); NEUTROPHILS 59 % (28-66)
[2022-03-18 20:04] LABS: PLATELET CLUMPS SMALL AMT
[2022-03-18 20:07] LABS: DOHLE BODIES 1+; PLATELET ESTIMATE NORMAL (NORMAL); TOXIC VACUOLATION 1+
[2022-03-18] MEDS ORDERED: NOREPINEPHRINE BITARTRATE 8 MG in D5W 492 ML IV SCH (20:10)
[2022-03-18] MEDS: PANTOPRAZOLE 40MG VIAL IV SCH (20:15)
[2022-03-18] MEDS: metroNIDAZOLE 500 MG in IV 1 EA IV SCH (20:15)
[2022-03-19] VITALS (79 sets, daily range): BP systolic 77–128; BP diastolic 48–72
[2022-03-19 01:04] LABS: CALCIUM LEVEL 7.6 MG/DL (8.5-10.1); CREATININE FOR GFR 2.68 MG/DL (0.55-1.30); GLOMERULAR FILTRATION RATE 19.6 (>51); POTASSIUM SERUM 2.9 MEQ/L (3.5-5.1)
[2022-03-19 01:30] LABS: MAGNESIUM LEVEL 2.2 MG/DL (1.8-2.4)
[2022-03-19] MEDS: KCL 20MEQ IN 100ML SWI (KRUN) 20 MEQ in IV 1 EA IV SCH ×4 (02:28→03:43)
[2022-03-19] MEDS: NOREPINEPHRINE BITARTRATE 8 MG in D5W 492 ML IV SCH ×4 (03:42→19:56)
[2022-03-19] MEDS: metroNIDAZOLE 500 MG in IV 1 EA IV SCH ×3 (04:19→22:09)
[2022-03-19] MEDS: LR 1,000 ML IV SCH (04:19)
[2022-03-19] MEDS: PIPERACILLIN/TAZOBACTAM SOD 2.25 GM in D5W MINI-BAG PLUS 50 ML IV SCH ×3 (04:54→22:56)
[2022-03-19 05:12] LABS: HEMATOCRIT 39.4 % (36.0-47.0); HEMOGLOBIN 13.8 g/dl (12.0-15.5); MEAN CORPUSCULAR HEMOGLOBIN 29.9 pg (27.0-33.0); MEAN CORPUSCULAR VOLUME 85.3 fl (80.0-96.0); PLATELET COUNT, AUTOMATED 182 10^3/uL (150-450); RED BLOOD COUNT 4.62 10^6/uL (4.00-5.40); WHITE BLOOD COUNT 23.5 10^3/uL (4.0-10.0)
[2022-03-19] MEDS ORDERED: KCL 20MEQ IN 100ML SWI (KRUN) 20 MEQ in IV 1 EA IV ONE ×2 (05:40)
[2022-03-19 06:23] LABS: ALBUMIN 1.5 GM/DL (3.2-5.2); BILIRUBIN,DIRECT 0.2 MG/DL (0.0-0.2); BILIRUBIN,TOTAL 0.4 MG/DL (0.2-1.0); CALCIUM LEVEL 7.6 MG/DL (8.5-10.1); CREATININE FOR GFR 2.5 MG/DL (0.55-1.30); GLOMERULAR FILTRATION RATE 21.3 (>51); MAGNESIUM LEVEL 2.2 MG/DL (1.8-2.4); POTASSIUM SERUM 4.2 MEQ/L (3.5-5.1)
[2022-03-19] MEDS: BUPRENORPHINE/NALOXONE 2-0.5MG SUBLINGUAL TABLET(SUBOXONE) SL SCH (10:55)
[2022-03-19] MEDS: KCL 20MEQ IN 0.45NS 1000ML 1,000 ML IV SCH ×2 (10:55→18:20)
[2022-03-19] MEDS ORDERED: CALCIUM GLUCONATE 1,000 MG in D5W MINI-BAG PLUS 100 ML IV ONE (11:00)
[2022-03-19 11:55] LABS: VENOUS BASE EXCESS 1.8 (-2.0-2.0); VENOUS HCO3 27.1 MEQ/L (23.0-27.0); VENOUS O2 SATURATION 86.8 % (60.0-80.0); VENOUS PARTIAL PRESSURE CO2 45.1 mmHg (38.0-50.0); VENOUS PARTIAL PRESSURE O2 53.2 mmHg (30.0-50.0); VENOUS PH 7.397 UNITS (7.330-7.430); VENOUS STANDARD HCO3 25.8 MEQ/L; VENOUS TOTAL CO2 28.5 MEQ/L (24.0-28.0)
[2022-03-19] MEDS: ALBUTEROL SULFATE 2.5 MG/0.5 ML INH NEB SOLN NEB SCH ×3 (12:00→19:47)
[2022-03-19] MEDS ORDERED: ETOMIDATE INJ 20MG/10ML VIAL As Ordered ONE (18:09)
[2022-03-19] MEDS ORDERED: MIDAZOLAM INJ 2MG/2ML VIAL (J2250 PER 1MG) As Ordered ONE (18:09)
[2022-03-19] MEDS ORDERED: fentaNYL 100 MCG/2 ML INJECTION As Ordered ONE (18:09)
[2022-03-19] MEDS ORDERED: LIDOCAINE 2% 100MG/5ML SDV (FOR ANES.) As Ordered ONE (18:09)
[2022-03-19] MEDS ORDERED: ONDANSETRON 4MG 2ML VIAL As Ordered ONE (18:09)
[2022-03-19] MEDS ORDERED: dexameTHASONE 4 MG/ML 1ML VIAL (J1100 PER 1MG) As Ordered ONE (18:09)
[2022-03-19] MEDS ORDERED: ACETAMINOPHEN 1000MG 100ML IV BTL (OFIRMEV) (J0131 PER 10MG) As Ordered ONE (18:09)
[2022-03-19] MEDS ORDERED: ROCURONIUM BROMIDE 50 MG/5 ML VIAL As Ordered ONE ×2 (18:09→18:23)
[2022-03-19] MEDS ORDERED: propofoL 200 MG/20 ML VIAL As Ordered ONE (18:09)
[2022-03-19] MEDS ORDERED: LACRILUBE (AKWA TEARS) OPHTH OINT 3.5 GM As Ordered ONE (18:10)
[2022-03-19] MEDS ORDERED: PHENYLephrine 500MCG 5ML (100MCG/ML) SYRINGE As Ordered ONE (18:13)
[2022-03-19] MEDS ORDERED: HYDROmorphone HCL 2MG/ML 1ML VIAL As Ordered ONE (18:18)
[2022-03-19] MEDS ORDERED: metroNIDAZOLE/NACL 500MG(5MG/ML) 100ML BAG As Ordered ONE (18:35)
[2022-03-19] MEDS ORDERED: NOREPINEPHRINE BITARTRATE 8 MG in D5W 500 ML IV SCH (19:15)
[2022-03-19] MEDS ORDERED: SUGAMMADEX SODIUM 500 MG/5 ML VIAL (BRIDION) As Ordered ONE (19:39)
[2022-03-19] MEDS ORDERED: METOCLOPRAMIDE INJ 10MG/2ML VIAL (J2765 PER 1) As Ordered ONE (19:44)
[2022-03-19] MEDS ORDERED: fentaNYL 100 MCG/2 ML INJECTION IV PRN (20:25)
[2022-03-19] MEDS ORDERED: ONDANSETRON 4MG 2ML VIAL IV PRN (20:25)
[2022-03-19] MEDS ORDERED: NOREPINEPHRINE BITARTRATE 8 MG in D5W 492 ML IV SCH (20:30)
[2022-03-19] MEDS ORDERED: KCL 20MEQ IN 0.45NS 1000ML 1,000 ML IV SCH (20:30)
[2022-03-19] MEDS: PANTOPRAZOLE 40MG VIAL IV SCH (22:08)
[2022-03-20] VITALS (95 sets, daily range): BP systolic 79–162; BP diastolic 47–94; O2SAT 96
[2022-03-20] MEDS: ALBUTEROL SULFATE 2.5 MG/0.5 ML INH NEB SOLN NEB SCH ×6 (00:59→19:47)
[2022-03-20] MEDS: KCL 20MEQ IN 0.45NS 1000ML 1,000 ML IV SCH ×3 (02:20→13:08)
[2022-03-20] MEDS: metroNIDAZOLE 500 MG in IV 1 EA IV SCH ×3 (03:53→19:43)
[2022-03-20 04:47] LABS: HEMATOCRIT 33.3 % (36.0-47.0); MEAN CORPUSCULAR HEMOGLOBIN 30.4 pg (27.0-33.0); MEAN CORPUSCULAR HGB CONC 34.5 g/dl (32.0-36.5); MEAN CORPUSCULAR VOLUME 88.1 fl (80.0-96.0); RED BLOOD COUNT 3.78 10^6/uL (4.00-5.40); WHITE BLOOD COUNT 23.3 10^3/uL (4.0-10.0)
[2022-03-20 04:56] LABS: CALCIUM LEVEL 7.6 MG/DL (8.5-10.1); CREATININE FOR GFR 1.19 MG/DL (0.55-1.30); GLOMERULAR FILTRATION RATE 50.1 (>51); POTASSIUM SERUM 3.9 MEQ/L (3.5-5.1)
[2022-03-20] MEDS: NOREPINEPHRINE BITARTRATE 8 MG in D5W 492 ML IV SCH ×3 (04:58→20:40)
[2022-03-20 05:05] LABS: ALBUMIN 1.5 GM/DL (3.2-5.2); BILIRUBIN,TOTAL 0.5 MG/DL (0.2-1.0); CALCIUM LEVEL 7.1 MG/DL (8.5-10.1); CREATININE FOR GFR 1.23 MG/DL (0.55-1.30); GLOMERULAR FILTRATION RATE 48.3 (>51); MAGNESIUM LEVEL 1.6 MG/DL (1.8-2.4); POTASSIUM SERUM 3.9 MEQ/L (3.5-5.1); TOTAL PROTEIN 3.4 GM/DL (6.4-8.2)
[2022-03-20] MEDS: PIPERACILLIN/TAZOBACTAM SOD 2.25 GM in D5W MINI-BAG PLUS 50 ML IV SCH (05:08)
[2022-03-20 05:13] LABS: HEMOGLOBIN 11.5 g/dl (12.0-15.5)
[2022-03-20 05:19] LABS: LYMPHOCYTES 2 % (16-44); METAMYELOCYTES 2 % (0-0); MONOCYTES 1 % (0-5); MYELOCYTES 1 % (0-0); NEUTROPHILS 87 % (28-66); PLATELET ESTIMATE NORMAL (NORMAL)
[2022-03-20 05:20] LABS: DOHLE BODIES 2+; PLATELET CLUMPS SMALL AMT; TOXIC VACUOLATION 1+
[2022-03-20] MEDS ORDERED: MAG SULF 1GM/100ML (MAG RUN) 1 GM in IV 1 EA IV ONE ×3 (05:20→22:35)
[2022-03-20] MEDS: BUPRENORPHINE/NALOXONE 2-0.5MG SUBLINGUAL TABLET(SUBOXONE) SL SCH (09:04)
[2022-03-20] MEDS ORDERED: PIPERACILLIN/TAZOBACTAM SOD 3.375 GM in D5W MINI-BAG PLUS 50 ML IV SCH (12:00)
[2022-03-20] MEDS: PIPERACILLIN/TAZOBACTAM SOD 3.375 GM in D5W MINI-BAG PLUS 50 ML IV SCH ×2 (13:08→18:55)
[2022-03-20 16:47] LABS: HEMATOCRIT 32.8 % (36.0-47.0); HEMOGLOBIN 11.5 g/dl (12.0-15.5); MEAN CORPUSCULAR HEMOGLOBIN 30.7 pg (27.0-33.0); MEAN CORPUSCULAR HGB CONC 35.1 g/dl (32.0-36.5); MEAN CORPUSCULAR VOLUME 87.7 fl (80.0-96.0); RED BLOOD COUNT 3.74 10^6/uL (4.00-5.40); WHITE BLOOD COUNT 21.9 10^3/uL (4.0-10.0)
[2022-03-20 17:10] LABS: PLATELET COUNT, AUTOMATED 38 10^3/uL (150-450)
[2022-03-20] MEDS ORDERED: FUROSEMIDE 20MG/2ML VIAL (J1940) IV ONE (19:10)
[2022-03-20] MEDS: PANTOPRAZOLE 40MG VIAL IV SCH (19:43)
[2022-03-20] MEDS ORDERED: ADENOSINE 6MG/2ML INJECTION (J0153) As Ordered ONE (21:13)
[2022-03-20] MEDS ORDERED: ADENOSINE 6MG/2ML INJECTION (J0153) IV STA ×2 (21:23→21:24)
[2022-03-20] MEDS ORDERED: LEVALBUTEROL 1.25 MG/0.5 ML CONCENTRATE NEB INH PRN (21:25)
[2022-03-20] MEDS ORDERED: METOPROLOL 5 MG/5 ML VIAL IV ONE (21:35)
[2022-03-20] MEDS: METOPROLOL TART 25 MG TABLET PO SCH (21:44)
[2022-03-20 21:45] LABS: BLOOD UREA NITROGEN 50 MG/DL (7-18); CARBON DIOXIDE LEVEL 30 MEQ/L (21-32); CHLORIDE LEVEL 112 MEQ/L (98-107); CREATININE FOR GFR 0.84 MG/DL (0.55-1.30); GLOMERULAR FILTRATION RATE > 60.0 (>51); GLUCOSE, FASTING 133 MG/DL (70-100); MAGNESIUM LEVEL 1.8 MG/DL (1.8-2.4); POTASSIUM SERUM 3.4 MEQ/L (3.5-5.1); SODIUM LEVEL 147 MEQ/L (136-145)
[2022-03-20] MEDS ORDERED: POTASSIUM CHLORIDE 10MEQ SR TABLET PO ONE (22:35)
[2022-03-20] MEDS: KCL 10MEQ/100ML SWI (KRUN) 10 MEQ in IV 1 EA IV SCH (22:57)
[2022-03-21] VITALS (46 sets, daily range): BP systolic 123–196; BP diastolic 66–103
[2022-03-21] MEDS: PIPERACILLIN/TAZOBACTAM SOD 3.375 GM in D5W MINI-BAG PLUS 50 ML IV SCH ×2 (00:39→06:14)
[2022-03-21] MEDS: KCL 10MEQ/100ML SWI (KRUN) 10 MEQ in IV 1 EA IV SCH (00:39)
[2022-03-21] MEDS: metroNIDAZOLE 500 MG in IV 1 EA IV SCH (04:21)
[2022-03-21] MEDS ORDERED: ACETAMINOPHEN 500 MG TAB PO ONE (05:00)
[2022-03-21 05:27] LABS: HEMATOCRIT 34.2 % (36.0-47.0); HEMOGLOBIN 11.9 g/dl (12.0-15.5); MEAN CORPUSCULAR HEMOGLOBIN 30.5 pg (27.0-33.0); MEAN CORPUSCULAR HGB CONC 34.8 g/dl (32.0-36.5); MEAN CORPUSCULAR VOLUME 87.7 fl (80.0-96.0); WHITE BLOOD COUNT 20.1 10^3/uL (4.0-10.0)
[2022-03-21 05:30] LABS: PLATELET COUNT, AUTOMATED 27 10^3/uL (150-450)
[2022-03-21] MEDS: METOPROLOL TART 25 MG TABLET PO SCH ×3 (05:38→21:32)
[2022-03-21 06:00] LABS: ALBUMIN 1.4 GM/DL (3.2-5.2); ALT/SGPT 38 U/L (12-78); BILIRUBIN,TOTAL 0.6 MG/DL (0.2-1.0); BLOOD UREA NITROGEN 42 MG/DL (7-18); CALCIUM LEVEL 7.6 MG/DL (8.5-10.1); CARBON DIOXIDE LEVEL 31 MEQ/L (21-32); CHLORIDE LEVEL 114 MEQ/L (98-107); CREATININE FOR GFR 0.79 MG/DL (0.55-1.30); GLOMERULAR FILTRATION RATE > 60.0 (>51); GLUCOSE, FASTING 104 MG/DL (70-100); MAGNESIUM LEVEL 1.9 MG/DL (1.8-2.4); POTASSIUM SERUM 3.6 MEQ/L (3.5-5.1); SODIUM LEVEL 149 MEQ/L (136-145); TOTAL PROTEIN 3.8 GM/DL (6.4-8.2)
[2022-03-21] MEDS: LEVALBUTEROL 1.25 MG/0.5 ML CONCENTRATE NEB INH PRN ×3 (07:33→15:21)
[2022-03-21 10:41] LABS: PLTBLUE- EDTA FREE MACHINE 20 10^3/uL (172-450)
[2022-03-21 10:42] LABS: PLTBLUE- EDTA FREE CALC 22 K/mm3 (172-450)
[2022-03-21] MEDS: KCL 20MEQ IN 0.45NS 1000ML 1,000 ML IV SCH (13:48)
[2022-03-21] MEDS: cefTRIAXone SOD 1 GM in D5W MINI-BAG PLUS 50 ML IV SCH (13:53)
[2022-03-21] MEDS ORDERED: D10W IV SCH (14:10)
[2022-03-21] MEDS ORDERED: POTASSIUM CHLORIDE IV SCH (14:10)
[2022-03-21] MEDS ORDERED: SODIUM CHLORIDE IV SCH (14:10)
[2022-03-21] MEDS: NOREPINEPHRINE BITARTRATE 8 MG in D5W 492 ML IV SCH (15:17)
[2022-03-21] MEDS: KCL 40MEQ IN D5/0.45NS 1000ML 1,000 ML IV SCH (15:17)
[2022-03-21 15:33] LABS: ABG HCO3 27.2 MEQ/L (22.0-26.0); ABG O2 SATURATION 98.5 % (95.0-99.0); ABG PARTIAL PRESSURE CO2 40.2 mmHg (35.0-45.0); ABG PARTIAL PRESSURE O2 209.6 mmHg (75.0-100.0); ABG STANDARD HCO3 27.1 MEQ/L (22.0-26.0); ABG TOTAL CO2 28.4 MEQ/L (22.0-29.0); ABG pH (ARTERIAL) 7.448 UNITS (7.350-7.450)
[2022-03-21] MEDS: MORPHINE 2 MG/ML 1ML VIAL IV PRN (18:33)
[2022-03-21 18:43] LABS: INR 1.33; PROTHROMBIN TIME 16.9 SECONDS (12.7-14.5)
[2022-03-21 18:44] LABS: PARTIAL THROMBOPLASTIN TIME 34.7 SECONDS (25.9-37.0)
[2022-03-21] MEDS: PANTOPRAZOLE 40MG VIAL IV SCH (21:33)
[2022-03-22] VITALS (16 sets, daily range): BP systolic 136–183; BP diastolic 69–105
[2022-03-22] MEDS: MORPHINE 2 MG/ML 1ML VIAL IV PRN ×4 (02:14→21:13)
[2022-03-22] MEDS: KCL 40MEQ IN D5/0.45NS 1000ML 1,000 ML IV SCH (03:36)
[2022-03-22] MEDS: METOPROLOL TART 25 MG TABLET PO SCH ×3 (05:08→21:14)
[2022-03-22] MEDS: NOREPINEPHRINE BITARTRATE 8 MG in D5W 492 ML IV SCH (05:09)
[2022-03-22 05:55] LABS: HEMATOCRIT 35.2 % (36.0-47.0); MEAN CORPUSCULAR HEMOGLOBIN 30.8 pg (27.0-33.0); MEAN CORPUSCULAR HGB CONC 34.1 g/dl (32.0-36.5); MEAN CORPUSCULAR VOLUME 90.3 fl (80.0-96.0); WHITE BLOOD COUNT 13.9 10^3/uL (4.0-10.0)
[2022-03-22 05:56] LABS: PLATELET COUNT, AUTOMATED 22 10^3/uL (150-450)
[2022-03-22 06:10] LABS: ALBUMIN 1.6 GM/DL (3.2-5.2); ALT/SGPT 36 U/L (12-78); BILIRUBIN,TOTAL 0.9 MG/DL (0.2-1.0); BLOOD UREA NITROGEN 23 MG/DL (7-18); CALCIUM LEVEL 6.9 MG/DL (8.5-10.1); CARBON DIOXIDE LEVEL 33 MEQ/L (21-32); CHLORIDE LEVEL 115 MEQ/L (98-107); CREATININE FOR GFR 0.54 MG/DL (0.55-1.30); GLOMERULAR FILTRATION RATE > 60.0 (>51); GLUCOSE, FASTING 104 MG/DL (70-100); MAGNESIUM LEVEL 1.2 MG/DL (1.8-2.4); POTASSIUM SERUM 3.5 MEQ/L (3.5-5.1); SODIUM LEVEL 149 MEQ/L (136-145); TOTAL PROTEIN 3.7 GM/DL (6.4-8.2)
[2022-03-22] MEDS ORDERED: MAG SULF 1GM/100ML (MAG RUN) 1 GM in IV 1 EA IV ONE ×2 (07:00→08:00)
[2022-03-22] MEDS: POTASSIUM CHLORIDE INJ 40 MEQ in D5W 1,000 ML IV SCH ×2 (10:00→23:42)
[2022-03-22] MEDS: cefTRIAXone SOD 1 GM in D5W MINI-BAG PLUS 50 ML IV SCH (12:31)
[2022-03-22] MEDS: LEVALBUTEROL 1.25 MG/0.5 ML CONCENTRATE NEB INH SCH ×3 (16:26→23:23)
[2022-03-22] MEDS: SODIUM CHLORIDE HYPERTONIC 3% 15ML NEB SOL INH SCH ×3 (16:26→23:23)
[2022-03-22 17:05] LABS: BLOOD UREA NITROGEN 19 MG/DL (7-18); CALCIUM LEVEL 7.1 MG/DL (8.5-10.1); CARBON DIOXIDE LEVEL 31 MEQ/L (21-32); CHLORIDE LEVEL 111 MEQ/L (98-107); GLOMERULAR FILTRATION RATE > 60.0 (>51); GLUCOSE, FASTING 151 MG/DL (70-100); MAGNESIUM LEVEL 1.6 MG/DL (1.8-2.4); POTASSIUM SERUM 3.2 MEQ/L (3.5-5.1); SODIUM LEVEL 145 MEQ/L (136-145)
[2022-03-22] MEDS: MAG SULF 1GM/100ML (MAG RUN) 1 GM in IV 1 EA IV SCH ×2 (18:24→19:10)
[2022-03-22] MEDS ORDERED: KCL 10MEQ/100ML SWI (KRUN) 10 MEQ in IV 1 EA IV SCH (18:50)
[2022-03-22] MEDS: KCL 10MEQ/100ML SWI (KRUN) 10 MEQ in IV 1 EA IV SCH ×2 (19:09→20:56)
[2022-03-22] MEDS: PANTOPRAZOLE 40MG VIAL IV SCH (19:09)
[2022-03-23] VITALS (9 sets, daily range): BP systolic 114–154; BP diastolic 77–98
[2022-03-23] MEDS: SODIUM CHLORIDE HYPERTONIC 3% 15ML NEB SOL INH SCH ×5 (04:17→20:24)
[2022-03-23] MEDS: LEVALBUTEROL 1.25 MG/0.5 ML CONCENTRATE NEB INH SCH ×5 (04:18→20:25)
[2022-03-23 04:27] LABS: HEMATOCRIT 34.7 % (36.0-47.0); HEMOGLOBIN 11.8 g/dl (12.0-15.5); MEAN CORPUSCULAR VOLUME 88.3 fl (80.0-96.0); RED BLOOD COUNT 3.93 10^6/uL (4.00-5.40); WHITE BLOOD COUNT 14.3 10^3/uL (4.0-10.0)
[2022-03-23 04:36] LABS: PLATELET COUNT, AUTOMATED 25 10^3/uL (150-450)
[2022-03-23 04:55] LABS: ALBUMIN 1.7 GM/DL (3.2-5.2); ALT/SGPT 41 U/L (12-78); BILIRUBIN,TOTAL 1.2 MG/DL (0.2-1.0); BLOOD UREA NITROGEN 15 MG/DL (7-18); CALCIUM LEVEL 6.9 MG/DL (8.5-10.1); CARBON DIOXIDE LEVEL 29 MEQ/L (21-32); CHLORIDE LEVEL 108 MEQ/L (98-107); CREATININE FOR GFR 0.48 MG/DL (0.55-1.30); GLOMERULAR FILTRATION RATE > 60.0 (>51); GLUCOSE, FASTING 149 MG/DL (70-100); MAGNESIUM LEVEL 1.5 MG/DL (1.8-2.4); POTASSIUM SERUM 3.2 MEQ/L (3.5-5.1); SODIUM LEVEL 143 MEQ/L (136-145); TOTAL PROTEIN 4.5 GM/DL (6.4-8.2)
[2022-03-23] MEDS: METOPROLOL TART 25 MG TABLET PO SCH ×3 (05:03→21:03)
[2022-03-23] MEDS ORDERED: MAG SULF 1GM/100ML (MAG RUN) 1 GM in IV 1 EA IV ONE ×3 (06:00→10:00)
[2022-03-23] MEDS ORDERED: KCL 10MEQ/100ML SWI (KRUN) 10 MEQ in IV 1 EA IV ONE (08:00)
[2022-03-23] MEDS ORDERED: LR 1,000 ML IV SCH (09:10)
[2022-03-23] MEDS: KCL 20MEQ IN 100ML SWI (KRUN) 20 MEQ in IV 1 EA IV SCH ×4 (11:04→12:15)
[2022-03-23] MEDS: BUPRENORPHINE/NALOXONE 2-0.5MG SUBLINGUAL TABLET(SUBOXONE) SL SCH (12:15)
[2022-03-23] MEDS: cefTRIAXone SOD 1 GM in D5W MINI-BAG PLUS 50 ML IV SCH (13:59)
[2022-03-23 18:19] LABS: BLOOD UREA NITROGEN 11 MG/DL (7-18); CALCIUM LEVEL 7.7 MG/DL (8.5-10.1); CARBON DIOXIDE LEVEL 28 MEQ/L (21-32); CHLORIDE LEVEL 108 MEQ/L (98-107); CREATININE FOR GFR 0.44 MG/DL (0.55-1.30); GLOMERULAR FILTRATION RATE > 60.0 (>51); GLUCOSE, FASTING 95 MG/DL (70-100); MAGNESIUM LEVEL 1.7 MG/DL (1.8-2.4); POTASSIUM SERUM 3.7 MEQ/L (3.5-5.1); SODIUM LEVEL 142 MEQ/L (136-145)
[2022-03-23] MEDS ORDERED: KCL 10MEQ/100ML SWI (KRUN) 10 MEQ in IV 1 EA IV SCH ×2 (19:30→21:30)
[2022-03-23] MEDS ORDERED: MAG SULF 1GM/100ML (MAG RUN) 1 GM in IV 1 EA IV SCH (19:30)
[2022-03-23] MEDS: PANTOPRAZOLE 40MG VIAL IV SCH (19:38)
[2022-03-23] MEDS ORDERED: POTASSIUM CHLORIDE 10MEQ SR TABLET PO ONE (20:00)
[2022-03-23] MEDS: MAGNESIUM OXIDE 400MG TAB (MAG-OX) PO SCH (21:03)
[2022-03-24] VITALS (7 sets, daily range): BP systolic 103–151; BP diastolic 67–87
[2022-03-24] MEDS: LEVALBUTEROL 1.25 MG/0.5 ML CONCENTRATE NEB INH SCH ×6 (01:01→19:35)
[2022-03-24] MEDS: SODIUM CHLORIDE HYPERTONIC 3% 15ML NEB SOL INH SCH ×6 (01:01→19:35)
[2022-03-24] MEDS: METOPROLOL TART 25 MG TABLET PO SCH ×3 (05:13→22:18)
[2022-03-24] MEDS ORDERED: ACETAMINOPHEN TAB 650MG DOSE (2X325MG) PO PRN (07:20)
[2022-03-24 08:36] LABS: HEMATOCRIT 35.3 % (36.0-47.0); HEMOGLOBIN 12.1 g/dl (12.0-15.5); MEAN CORPUSCULAR HGB CONC 34.3 g/dl (32.0-36.5); MEAN CORPUSCULAR VOLUME 90.5 fl (80.0-96.0); WHITE BLOOD COUNT 16.3 10^3/uL (4.0-10.0)
[2022-03-24] MEDS: BUPRENORPHINE/NALOXONE 2-0.5MG SUBLINGUAL TABLET(SUBOXONE) SL SCH (08:52)
[2022-03-24] MEDS: MAGNESIUM OXIDE 400MG TAB (MAG-OX) PO SCH (08:52)
[2022-03-24 09:06] LABS: ALBUMIN 1.9 GM/DL (3.2-5.2); ALT/SGPT 39 U/L (12-78); BILIRUBIN,TOTAL 1.2 MG/DL (0.2-1.0); BLOOD UREA NITROGEN 12 MG/DL (7-18); CALCIUM LEVEL 7.7 MG/DL (8.5-10.1); CARBON DIOXIDE LEVEL 27 MEQ/L (21-32); CHLORIDE LEVEL 112 MEQ/L (98-107); CREATININE FOR GFR 0.44 MG/DL (0.55-1.30); GLOMERULAR FILTRATION RATE > 60.0 (>51); GLUCOSE, FASTING 93 MG/DL (70-100); MAGNESIUM LEVEL 1.5 MG/DL (1.8-2.4); PLATELET COUNT, AUTOMATED 80 10^3/uL (150-450); POTASSIUM SERUM 4.8 MEQ/L (3.5-5.1); SODIUM LEVEL 145 MEQ/L (136-145); TOTAL PROTEIN 4.8 GM/DL (6.4-8.2)
[2022-03-24] MEDS: cefTRIAXone SOD 1 GM in D5W MINI-BAG PLUS 50 ML IV SCH (13:35)
[2022-03-24] MEDS: MAG SULF 1GM/100ML (MAG RUN) 1 GM in IV 1 EA IV SCH ×2 (14:50→16:30)
[2022-03-24] MEDS ORDERED: SODIUM CHLORIDE 0.9% INJ 10 ML SYR IV PRN (15:25)
[2022-03-24] MEDS: SODIUM CHLORIDE 0.9% INJ 10 ML SYR IV SCH (22:18)
[2022-03-24] MEDS: PANTOPRAZOLE 40MG VIAL IV SCH (22:18)
[2022-03-25] VITALS (7 sets, daily range): BP systolic 95–135; BP diastolic 54–66
[2022-03-25] MEDS: LEVALBUTEROL 1.25 MG/0.5 ML CONCENTRATE NEB INH SCH ×5 (00:37→20:15)
[2022-03-25] MEDS: SODIUM CHLORIDE HYPERTONIC 3% 15ML NEB SOL INH SCH ×5 (00:38→20:15)
[2022-03-25] MEDS: SODIUM CHLORIDE 0.9% INJ 10 ML SYR IV SCH ×3 (05:18→22:30)
[2022-03-25] MEDS: METOPROLOL TART 25 MG TABLET PO SCH ×2 (05:18→22:29)
[2022-03-25 06:51] LABS: BASO % 0.1 % (0.0-1.0); EOS % 0.2 % (0.0-3.0); HEMATOCRIT 32.5 % (36.0-47.0); HEMOGLOBIN 10.8 g/dl (12.0-15.5); LYMPH # 0.7 10^3/uL (1.5-5.0); LYMPH % 4.5 % (24.0-44.0); MEAN CORPUSCULAR HEMOGLOBIN 30.1 pg (27.0-33.0); MEAN CORPUSCULAR HGB CONC 33.2 g/dl (32.0-36.5); MEAN CORPUSCULAR VOLUME 90.5 fl (80.0-96.0); MONO # 0.3 10^3/uL (0.0-0.8); MONO % 2.1 % (2.0-8.0); NEUTROPHILS # 14.8 10^3/uL (1.5-8.5); NEUTROPHILS % 90.8 % (36.0-66.0); PLATELET COUNT, AUTOMATED 134 10^3/uL (150-450); RED BLOOD COUNT 3.59 10^6/uL (4.00-5.40); WHITE BLOOD COUNT 16.3 10^3/uL (4.0-10.0)
[2022-03-25 07:32] LABS: BLOOD UREA NITROGEN 9 MG/DL (7-18); CALCIUM LEVEL 7.8 MG/DL (8.5-10.1); CARBON DIOXIDE LEVEL 26 MEQ/L (21-32); CHLORIDE LEVEL 110 MEQ/L (98-107); CREATININE FOR GFR 0.62 MG/DL (0.55-1.30); GLOMERULAR FILTRATION RATE > 60.0 (>51); GLUCOSE, FASTING 92 MG/DL (70-100); MAGNESIUM LEVEL 1.5 MG/DL (1.8-2.4); POTASSIUM SERUM 3.1 MEQ/L (3.5-5.1); SODIUM LEVEL 145 MEQ/L (136-145)
[2022-03-25] MEDS: BUPRENORPHINE/NALOXONE 2-0.5MG SUBLINGUAL TABLET(SUBOXONE) SL SCH (07:58)
[2022-03-25] MEDS: MAG SULF 1GM/100ML (MAG RUN) 1 GM in IV 1 EA IV SCH ×12 (07:59→18:26)
[2022-03-25] MEDS: KCL 20MEQ IN 100ML SWI (KRUN) 20 MEQ in IV 1 EA IV SCH ×4 (09:25→11:34)
[2022-03-25] MEDS: PANTOPRAZOLE 40MG TAB (PROTONIX) PO SCH (12:22)
[2022-03-26 00:55] VITALS: BP 113/66
[2022-03-26] MEDS: LEVALBUTEROL 1.25 MG/0.5 ML CONCENTRATE NEB INH SCH ×2 (01:22→07:15)
[2022-03-26] MEDS: SODIUM CHLORIDE HYPERTONIC 3% 15ML NEB SOL INH SCH ×2 (01:23→07:15)
[2022-03-26 05:17] VITALS: BP 138/75
[2022-03-26] MEDS: SODIUM CHLORIDE 0.9% INJ 10 ML SYR IV SCH (05:19)
[2022-03-26 05:51] LABS: BASO # 0.1 10^3/uL (0.0-0.2); BASO % 0.3 % (0.0-1.0); EOS # 0.1 10^3/uL (0.0-0.5); EOS % 0.4 % (0.0-3.0); HEMATOCRIT 30.4 % (36.0-47.0); HEMOGLOBIN 9.8 g/dl (12.0-15.5); LYMPH # 1.1 10^3/uL (1.5-5.0); LYMPH % 6.4 % (24.0-44.0); MEAN CORPUSCULAR HEMOGLOBIN 30.5 pg (27.0-33.0); MEAN CORPUSCULAR HGB CONC 32.2 g/dl (32.0-36.5); MEAN CORPUSCULAR VOLUME 94.7 fl (80.0-96.0); MONO # 0.4 10^3/uL (0.0-0.8); MONO % 2.3 % (2.0-8.0); NEUTROPHILS % 89.4 % (36.0-66.0); PLATELET COUNT, AUTOMATED 158 10^3/uL (150-450); RED BLOOD COUNT 3.21 10^6/uL (4.00-5.40); WHITE BLOOD COUNT 16.8 10^3/uL (4.0-10.0)
[2022-03-26 06:26] LABS: BLOOD UREA NITROGEN 9 MG/DL (7-18); CALCIUM LEVEL 7.4 MG/DL (8.5-10.1); CARBON DIOXIDE LEVEL 21 MEQ/L (21-32); CHLORIDE LEVEL 114 MEQ/L (98-107); CREATININE FOR GFR 0.41 MG/DL (0.55-1.30); GLOMERULAR FILTRATION RATE > 60.0 (>51); GLUCOSE, FASTING 72 MG/DL (70-100); POTASSIUM SERUM 3.4 MEQ/L (3.5-5.1); SODIUM LEVEL 142 MEQ/L (136-145)
[2022-03-26] MEDS ORDERED: POTASSIUM CHLORIDE 10MEQ SR TABLET PO ONE ×2 (07:30→11:00)
[2022-03-26 08:00] VITALS: BP 159/76
[2022-03-26] MEDS: METOPROLOL TART 25 MG TABLET PO SCH (08:12)
[2022-03-26] MEDS: PANTOPRAZOLE 40MG TAB (PROTONIX) PO SCH (08:12)
[2022-03-26] MEDS: BUPRENORPHINE/NALOXONE 2-0.5MG SUBLINGUAL TABLET(SUBOXONE) SL SCH ×2 (08:14→08:28)
[2022-03-26] MEDS ORDERED: METO1TAB87 PO (10:02)
[2022-03-26 11:08] LABS: MAGNESIUM LEVEL 1.5 MG/DL (1.8-2.4)
== END 2022-03-26 13:28 | disposition home health service (06) | DRG 710 ==
LOC: M ED 15:36 → M ED INP 19:04 → M PCU 22:39 → M ICU 03-18 17:58 → M PCU 03-23 19:44
PROVIDERS: ADMIT Family Medicine; ATTEND Internal Medicine Nephrology
PROC: 02HV33Z Insertion of Infusion Device into Superior Vena Cava, Percutaneous Approach (ICD-10-PCS; 2022-03-18)
PROC: 0DBB0ZZ Excision of Ileum, Open Approach (ICD-10-PCS; 2022-03-19)
PROC: 0DTJ0ZZ Resection of Appendix, Open Approach (ICD-10-PCS; 2022-03-19)
PROC: 0DBU0ZZ Excision of Omentum, Open Approach (ICD-10-PCS; principal; 2022-03-19 16:33)
DX: A41.9 Sepsis, unspecified organism (principal); J96.01 Acute respiratory failure with hypoxia; N17.0 Acute kidney failure with tubular necrosis; K65.0 Generalized (acute) peritonitis; K56.50 Intestinal adhesions [bands], unspecified as to partial versus complete obstruction; R65.21 Severe sepsis with septic shock; G93.41 Metabolic encephalopathy; R57.1 Hypovolemic shock; K63.1 Perforation of intestine (nontraumatic); E43 Unspecified severe protein-calorie malnutrition; K55.029 Acute infarction of small intestine, extent unspecified; J90 Pleural effusion, not elsewhere classified; E87.4 Mixed disorder of acid-base balance; M62.82 Rhabdomyolysis; D69.6 Thrombocytopenia, unspecified; F11.20 Opioid dependence, uncomplicated; E87.1 Hypo-osmolality and hyponatremia; E83.51 Hypocalcemia; E83.39 Other disorders of phosphorus metabolism; I47.1 Supraventricular tachycardia; E83.42 Hypomagnesemia; Z66 Do not resuscitate; E86.0 Dehydration; J44.9 Chronic obstructive pulmonary disease, unspecified; I10 Essential (primary) hypertension; F41.9 Anxiety disorder, unspecified; F32.A Depression, unspecified; F17.200 Nicotine dependence, unspecified, uncomplicated; J30.9 Allergic rhinitis, unspecified; E87.6 Hypokalemia; R41.82 Altered mental status, unspecified; R91.1 Solitary pulmonary nodule; J98.11 Atelectasis; B96.20 Unspecified Escherichia coli [E. coli] as the cause of diseases classified elsewhere; B96.1 Klebsiella pneumoniae [K. pneumoniae] as the cause of diseases classified elsewhere; Z79.899 Other long term (current) drug therapy

== ENCOUNTER 2022-04-06 17:38 | Inpatient (IN) | payer OTHER ==
[~2022-04-06] VITALS: Ht 149.9 cm; Wt 38.0 kg
[~2022-04-06 17:38] MED LIST changes: -IBUP-1720 PO; -METO25TA4 PO
[2022-04-06 18:17] LABS: BASO # 0.1 10^3/uL (0.0-0.2); BASO % 0.2 % (0.0-1.0); EOS % 0.1 % (0.0-3.0); HEMATOCRIT 30.7 % (36.0-47.0); HEMOGLOBIN 9.7 g/dl (12.0-15.5); LYMPH # 1.5 10^3/uL (1.5-5.0); LYMPH % 7.3 % (24.0-44.0); MEAN CORPUSCULAR HEMOGLOBIN 29.7 pg (27.0-33.0); MEAN CORPUSCULAR HGB CONC 31.6 g/dl (32.0-36.5); MEAN CORPUSCULAR VOLUME 93.9 fl (80.0-96.0); MONO # 0.6 10^3/uL (0.0-0.8); MONO % 2.9 % (2.0-8.0); NEUTROPHILS # 17.7 10^3/uL (1.5-8.5); NEUTROPHILS % 87.6 % (36.0-66.0); RED BLOOD COUNT 3.27 10^6/uL (4.00-5.40); WHITE BLOOD COUNT 20.2 10^3/uL (4.0-10.0)
[2022-04-06 18:28] LABS: PLATELET COUNT, AUTOMATED 1210 10^3/uL (150-450)
[2022-04-06 18:45] LABS: ALBUMIN 1.7 GM/DL (3.2-5.2); ALT/SGPT 13 U/L (12-78); BILIRUBIN,DIRECT 0.1 MG/DL (0.0-0.2); BILIRUBIN,TOTAL 0.2 MG/DL (0.2-1.0); BLOOD UREA NITROGEN 17 MG/DL (7-18); CALCIUM LEVEL 7.8 MG/DL (8.5-10.1); CARBON DIOXIDE LEVEL 29 MEQ/L (21-32); CHLORIDE LEVEL 103 MEQ/L (98-107); CREATININE FOR GFR 0.37 MG/DL (0.55-1.30); GLOMERULAR FILTRATION RATE > 60.0 (>51); GLUCOSE, FASTING 76 MG/DL (70-100); LIPASE 54 U/L (73-393); POTASSIUM SERUM 4.6 MEQ/L (3.5-5.1); SODIUM LEVEL 138 MEQ/L (136-145); TOTAL PROTEIN 6.1 GM/DL (6.4-8.2)
[2022-04-06] MEDS ORDERED: ISOVUE-370 76% 100ML VIAL As Ordered ONE (19:09)
[2022-04-06 19:42] LABS: NT-PRO BNP 4218 PG/ML (<125)
[2022-04-06] MEDS ORDERED: LIDOCAINE W/EPINEPHRINE 1% 20ML VIAL SC ONE (21:55)
[2022-04-06] MEDS ORDERED: PIPERACILLIN/TAZOBACTAM SOD 3.375 GM in D5W MINI-BAG PLUS 50 ML IV ONE (22:00)
[2022-04-06] MEDS ORDERED: ALBUTEROL 90 MCG/ACT 8GM HFA INHALER INH PRN (22:45)
[2022-04-06] MEDS: NS 1,000 ML IV SCH (22:45)
[2022-04-06] MEDS ORDERED: ACETAMINOPHEN TAB 650MG DOSE (2X325MG) PO PRN (22:45)
[2022-04-06] MEDS ORDERED: ONDANSETRON 4MG/2ML VIAL IV PRN (22:45)
[2022-04-06] MEDS: PANTOPRAZOLE 40MG VIAL IV SCH (23:27)
[2022-04-07] VITALS (7 sets, daily range): BP systolic 98–138; BP diastolic 56–108
[2022-04-07] MEDS ORDERED: UNRESOLVED CLARIFICATION ENTRY XX SCH ×2 (00:01→09:00)
[2022-04-07] MEDS: metroNIDAZOLE 500 MG in IV 1 EA IV SCH ×3 (00:01→16:18)
[2022-04-07 00:03] LABS: RSV AMPLIFICATION NEGATIVE (NEGATIVE)
[2022-04-07] MEDS: CIPROFLOXACIN 400 MG in IV 1 EA IV SCH ×2 (02:15→14:30)
[2022-04-07] MEDS ORDERED: IBUP-1720 PO (02:32)
[2022-04-07] MEDS ORDERED: METO25TA4 PO (02:32)
[2022-04-07] MEDS ORDERED: HOME MED LIST COMPLETE! XX SCH (02:35)
[2022-04-07] MEDS ORDERED: PIPERACILLIN/TAZOBACTAM SOD 3.375 GM in D5W MINI-BAG PLUS 50 ML IV SCH (05:00)
[2022-04-07 08:35] LABS: BASO # 0.1 10^3/uL (0.0-0.2); BASO % 0.3 % (0.0-1.0); EOS % 0.1 % (0.0-3.0); HEMATOCRIT 28.3 % (36.0-47.0); HEMOGLOBIN 9.2 g/dl (12.0-15.5); LYMPH # 1.2 10^3/uL (1.5-5.0); LYMPH % 6.5 % (24.0-44.0); MEAN CORPUSCULAR HEMOGLOBIN 29.8 pg (27.0-33.0); MEAN CORPUSCULAR HGB CONC 32.5 g/dl (32.0-36.5); MEAN CORPUSCULAR VOLUME 91.6 fl (80.0-96.0); MONO # 0.8 10^3/uL (0.0-0.8); NEUTROPHILS # 16.6 10^3/uL (1.5-8.5); RED BLOOD COUNT 3.09 10^6/uL (4.00-5.40); WHITE BLOOD COUNT 19.1 10^3/uL (4.0-10.0)
[2022-04-07 08:38] LABS: PLATELET COUNT, AUTOMATED 1147 10^3/uL (150-450)
[2022-04-07 08:48] LABS: C REACTIVE PROTEIN QUANTITATIV 8.4 MG/DL (0.00-0.30); MAGNESIUM LEVEL 1.5 MG/DL (1.8-2.4)
[2022-04-07] MEDS ORDERED: FLUoxetine 20MG CAP PO SCH (09:00)
[2022-04-07] MEDS ORDERED: FLUBLOK(EGG FREE)(QUAD)INFLUENZA VACC 0.5ML SYRINGE 18YRS & OLDER IM.IMMUN ONE (09:00)
[2022-04-07] MEDS ORDERED: METOPROLOL TART 25 MG TABLET PO SCH (09:00)
[2022-04-07] MEDS ORDERED: FLEET ENEMA PR ONE (10:35)
[2022-04-07] MEDS: BUPRENORPHINE/NALOXONE 2-0.5MG SUBLINGUAL TABLET(SUBOXONE) SL SCH (10:36)
[2022-04-07] MEDS: GABAPENTIN 300 MG CAP PO SCH ×3 (10:37→20:41)
[2022-04-07] MEDS: METOPROLOL TART 25 MG TABLET PO SCH ×2 (10:37→20:41)
[2022-04-07] MEDS: NS 1,000 ML IV SCH ×2 (10:40→18:18)
[2022-04-07] MEDS ORDERED: LIDOCAINE 1% MDV 20ML VIAL As Ordered ONE (12:51)
[2022-04-07] MEDS: INSULIN LISPRO (NovoLOG) PER UNIT SC SCH (18:00)
[2022-04-07] MEDS ORDERED: AMINO AC/ELECTROLYTE/DEX/CALC 2,566 ML IV SCH (18:00)
[2022-04-07] MEDS: PANTOPRAZOLE 40MG VIAL IV SCH (20:38)
[2022-04-08] VITALS (9 sets, daily range): BP systolic 113–136; BP diastolic 69–82; O2SAT 99
[2022-04-08] MEDS ORDERED: UNRESOLVED CLARIFICATION ENTRY XX SCH (00:01)
[2022-04-08] MEDS: CIPROFLOXACIN 400 MG in IV 1 EA IV SCH ×2 (01:56→13:00)
[2022-04-08] MEDS: metroNIDAZOLE 500 MG in IV 1 EA IV SCH ×4 (02:34→23:49)
[2022-04-08 05:38] LABS: BASO # 0.1 10^3/uL (0.0-0.2); BASO % 0.4 % (0.0-1.0); EOS # 0.1 10^3/uL (0.0-0.5); EOS % 0.3 % (0.0-3.0); HEMATOCRIT 27.4 % (36.0-47.0); HEMOGLOBIN 8.6 g/dl (12.0-15.5); LYMPH # 0.9 10^3/uL (1.5-5.0); LYMPH % 6.3 % (24.0-44.0); MEAN CORPUSCULAR HEMOGLOBIN 29.5 pg (27.0-33.0); MEAN CORPUSCULAR HGB CONC 31.4 g/dl (32.0-36.5); MEAN CORPUSCULAR VOLUME 93.8 fl (80.0-96.0); MONO # 0.6 10^3/uL (0.0-0.8); MONO % 3.8 % (2.0-8.0); NEUTROPHILS # 12.8 10^3/uL (1.5-8.5); NEUTROPHILS % 86.2 % (36.0-66.0); RED BLOOD COUNT 2.92 10^6/uL (4.00-5.40); WHITE BLOOD COUNT 14.8 10^3/uL (4.0-10.0)
[2022-04-08 05:44] LABS: PLATELET COUNT, AUTOMATED 917 10^3/uL (150-450)
[2022-04-08 06:02] LABS: BLOOD UREA NITROGEN 5 MG/DL (7-18); CALCIUM LEVEL 7.5 MG/DL (8.5-10.1); CARBON DIOXIDE LEVEL 30 MEQ/L (21-32); CHLORIDE LEVEL 107 MEQ/L (98-107); CREATININE FOR GFR 0.48 MG/DL (0.55-1.30); GLOMERULAR FILTRATION RATE > 60.0 (>51); GLUCOSE, FASTING 111 MG/DL (70-100); POTASSIUM SERUM 2.7 MEQ/L (3.5-5.1); SODIUM LEVEL 143 MEQ/L (136-145)
[2022-04-08] MEDS: INSULIN LISPRO (NovoLOG) PER UNIT SC SCH ×5 (06:30→23:46)
[2022-04-08] MEDS: METOPROLOL TART 25 MG TABLET PO SCH ×2 (08:31→21:18)
[2022-04-08] MEDS: GABAPENTIN 300 MG CAP PO SCH ×2 (08:31→16:00)
[2022-04-08] MEDS: BUPRENORPHINE/NALOXONE 2-0.5MG SUBLINGUAL TABLET(SUBOXONE) SL SCH (08:44)
[2022-04-08] MEDS ORDERED: KCL 10MEQ/100ML SWI (KRUN) 10 MEQ in IV 1 EA IV SCH (09:00)
[2022-04-08] MEDS ORDERED: propofoL 200 MG/20 ML VIAL As Ordered ONE ×3 (10:40→11:07)
[2022-04-08] MEDS ORDERED: ONDANSETRON 4MG/2ML VIAL As Ordered ONE (10:40)
[2022-04-08] MEDS ORDERED: dexameTHASONE 4 MG/ML 1ML VIAL (J1100 PER 1MG) As Ordered ONE (10:40)
[2022-04-08] MEDS ORDERED: ROCURONIUM BROMIDE 50 MG/5 ML VIAL As Ordered ONE ×3 (10:40→13:06)
[2022-04-08] MEDS ORDERED: LIDOCAINE 2% 100MG/5ML SDV (FOR ANES.) As Ordered ONE ×2 (10:40→10:41)
[2022-04-08] MEDS ORDERED: MIDAZOLAM INJ 2MG/2ML VIAL (J2250 PER 1MG) As Ordered ONE (10:41)
[2022-04-08] MEDS ORDERED: fentaNYL 100 MCG/2 ML INJECTION As Ordered ONE (10:41)
[2022-04-08] MEDS ORDERED: SUGAMMADEX SODIUM 500 MG/5 ML VIAL (BRIDION) As Ordered ONE ×2 (11:12→16:01)
[2022-04-08] MEDS ORDERED: ETOMIDATE INJ 20MG/10ML VIAL As Ordered ONE (11:41)
[2022-04-08] MEDS ORDERED: ePHEDrine SULFATE 25 MG/5 ML(5MG/ML) SYRINGE As Ordered ONE (11:52)
[2022-04-08] MEDS ORDERED: PHENYLephrine 500MCG 5ML (100MCG/ML) SYRINGE As Ordered ONE ×2 (11:52→12:10)
[2022-04-08] MEDS ORDERED: ACETAMINOPHEN 1000MG 100ML IV BTL (OFIRMEV) (J0131 PER 10MG) As Ordered ONE ×2 (12:02→12:32)
[2022-04-08] MEDS ORDERED: PHENYLEPHRINE 10MG/ML 1ML VIAL (J2370 PER 1) As Ordered ONE (12:02)
[2022-04-08] MEDS ORDERED: BUPIVACAINE HCL 0.25% 30ML VIAL As Ordered ONE (12:11)
[2022-04-08] MEDS ORDERED: CIPROFLOXACIN/D5W 400 MG/200 ML BAG (J0744) As Ordered ONE (13:28)
[2022-04-08] MEDS ORDERED: HYDROmorphone HCL 2MG/ML 1ML VIAL As Ordered ONE (15:32)
[2022-04-08] MEDS ORDERED: metroNIDAZOLE/NACL 500MG(5MG/ML) 100ML BAG As Ordered ONE (15:50)
[2022-04-08] MEDS ORDERED: KETOROLAC 60MG 2ML VIAL As Ordered ONE (16:00)
[2022-04-08] MEDS ORDERED: LR 1,000 ML IV SCH (17:10)
[2022-04-08] MEDS ORDERED: oxyCODONE 5MG TAB PO PRN (17:10)
[2022-04-08] MEDS ORDERED: ONDANSETRON 4MG/2ML VIAL IV PRN (17:10)
[2022-04-08] MEDS: fentaNYL 100 MCG/2 ML INJECTION IV PRN ×4 (17:14→17:30)
[2022-04-08] MEDS: MORPHINE 2 MG/ML 1ML VIAL IV PRN ×5 (17:31→21:18)
[2022-04-08] MEDS ORDERED: METOCLOPRAMIDE INJ 10MG/2ML VIAL (J2765 PER 1) IV ONE (17:45)
[2022-04-08] MEDS ORDERED: AMINO AC/ELECTROLYTE/DEX/CALC 2,566 ML IV SCH (18:00)
[2022-04-08] MEDS: KCL 10MEQ/100ML SWI (KRUN) 10 MEQ in IV 1 EA IV SCH ×4 (19:37→22:53)
[2022-04-08 19:38] LABS: BLOOD UREA NITROGEN 4 MG/DL (7-18); CALCIUM LEVEL 6.9 MG/DL (8.5-10.1); CARBON DIOXIDE LEVEL 23 MEQ/L (21-32); CHLORIDE LEVEL 108 MEQ/L (98-107); CREATININE FOR GFR 0.49 MG/DL (0.55-1.30); GLOMERULAR FILTRATION RATE > 60.0 (>51); GLUCOSE, FASTING 225 MG/DL (70-100); POTASSIUM SERUM 3.9 MEQ/L (3.5-5.1); SODIUM LEVEL 140 MEQ/L (136-145)
[2022-04-08] MEDS: PANTOPRAZOLE 40MG VIAL IV SCH (20:58)
[2022-04-09] MEDS: CIPROFLOXACIN 400 MG in IV 1 EA IV SCH ×2 (00:56→12:00)
[2022-04-09 01:23] VITALS: BP 132/78
[2022-04-09 04:00] VITALS: O2SAT 94
[2022-04-09 04:46] VITALS: BP 135/79
[2022-04-09 06:43] LABS: BASO # 0.1 10^3/uL (0.0-0.2); BASO % 0.2 % (0.0-1.0); HEMATOCRIT 28.1 % (36.0-47.0); HEMOGLOBIN 8.7 g/dl (12.0-15.5); LYMPH # 0.7 10^3/uL (1.5-5.0); MEAN CORPUSCULAR HEMOGLOBIN 28.9 pg (27.0-33.0); MEAN CORPUSCULAR VOLUME 93.4 fl (80.0-96.0); MONO # 0.6 10^3/uL (0.0-0.8); MONO % 1.7 % (2.0-8.0); NEUTROPHILS # 32.4 10^3/uL (1.5-8.5); NEUTROPHILS % 93.5 % (36.0-66.0); RED BLOOD COUNT 3.01 10^6/uL (4.00-5.40)
[2022-04-09 07:06] LABS: ALT/SGPT 9 U/L (12-78); BILIRUBIN,TOTAL 0.1 MG/DL (0.2-1.0); BLOOD UREA NITROGEN 5 MG/DL (7-18); CALCIUM LEVEL 6.7 MG/DL (8.5-10.1); CARBON DIOXIDE LEVEL 28 MEQ/L (21-32); CHLORIDE LEVEL 105 MEQ/L (98-107); CREATININE FOR GFR 0.59 MG/DL (0.55-1.30); GLOMERULAR FILTRATION RATE > 60.0 (>51); GLUCOSE, FASTING 291 MG/DL (70-100); POTASSIUM SERUM 4.4 MEQ/L (3.5-5.1); SODIUM LEVEL 137 MEQ/L (136-145)
[2022-04-09 07:27] LABS: WHITE BLOOD COUNT 34.7 10^3/uL (4.0-10.0)
[2022-04-09] MEDS: INSULIN LISPRO (NovoLOG) PER UNIT SC SCH ×4 (08:00→23:14)
[2022-04-09] MEDS: BUPRENORPHINE/NALOXONE 2-0.5MG SUBLINGUAL TABLET(SUBOXONE) SL SCH (08:01)
[2022-04-09] MEDS: METOPROLOL TART 25 MG TABLET PO SCH ×2 (08:01→22:04)
[2022-04-09] MEDS: metroNIDAZOLE 500 MG in IV 1 EA IV SCH ×3 (08:02→23:13)
[2022-04-09] MEDS: MORPHINE 2 MG/ML 1ML VIAL IV PRN ×2 (10:37→19:12)
[2022-04-09 10:47] VITALS: BP 123/74
[2022-04-09] MEDS: SODIUM CHLORIDE 0.9% INJ 10 ML SYR IV PRN ×3 (11:13→22:04)
[2022-04-09 14:30] VITALS: BP 128/77
[2022-04-09] MEDS: AZTREONAM 1 GM in D5W MINI-BAG PLUS 50 ML IV SCH ×2 (16:50→22:03)
[2022-04-09] MEDS: SODIUM CHLORIDE 0.9% INJ 10 ML SYR IV SCH (17:26)
[2022-04-09] MEDS ORDERED: AMINO AC/ELECTROLYTE/DEX/CALC 2,566 ML IV SCH (18:00)
[2022-04-09 21:00] VITALS: BP 125/75; O2SAT 94
[2022-04-09] MEDS: PANTOPRAZOLE 40MG VIAL IV SCH (22:03)
[2022-04-10] VITALS (8 sets, daily range): BP systolic 133–149; BP diastolic 73–95; O2SAT 93–96
[2022-04-10] MEDS: SODIUM CHLORIDE 0.9% INJ 10 ML SYR IV SCH ×3 (00:40→23:16)
[2022-04-10] MEDS: INSULIN LISPRO (NovoLOG) PER UNIT SC SCH ×4 (05:56→23:16)
[2022-04-10] MEDS: AZTREONAM 1 GM in D5W MINI-BAG PLUS 50 ML IV SCH ×3 (06:00→22:19)
[2022-04-10] MEDS: METOPROLOL TART 25 MG TABLET PO SCH ×2 (08:14→22:20)
[2022-04-10] MEDS: metroNIDAZOLE 500 MG in IV 1 EA IV SCH ×3 (08:15→23:07)
[2022-04-10] MEDS: BUPRENORPHINE/NALOXONE 2-0.5MG SUBLINGUAL TABLET(SUBOXONE) SL SCH (09:27)
[2022-04-10 10:29] LABS: HEMATOCRIT 25.7 % (36.0-47.0); HEMOGLOBIN 8.2 g/dl (12.0-15.5); MEAN CORPUSCULAR HEMOGLOBIN 29.5 pg (27.0-33.0); MEAN CORPUSCULAR HGB CONC 31.9 g/dl (32.0-36.5); MEAN CORPUSCULAR VOLUME 92.4 fl (80.0-96.0); PLATELET COUNT, AUTOMATED 727 10^3/uL (150-450); RED BLOOD COUNT 2.78 10^6/uL (4.00-5.40)
[2022-04-10 10:31] LABS: WHITE BLOOD COUNT 40.2 10^3/uL (4.0-10.0)
[2022-04-10 10:51] LABS: LYMPHOCYTES 5 % (16-44); METAMYELOCYTES 2 % (0-0); MONOCYTES 1 % (0-5); MYELOCYTES 3 % (0-0); NEUTROPHILS 83 % (28-66); PLATELET ESTIMATE INCREASED (NORMAL)
[2022-04-10 10:55] LABS: SMUDGE CELLS 1+
[2022-04-10 10:56] LABS: HYPERSEGMENTED POLYS 1+; POLYCHROMASIA 1+; ROULEAUX 1+
[2022-04-10 11:07] LABS: ALT/SGPT 12 U/L (12-78); BILIRUBIN,TOTAL 0.1 MG/DL (0.2-1.0); BLOOD UREA NITROGEN 9 MG/DL (7-18); CALCIUM LEVEL 7.4 MG/DL (8.5-10.1); CARBON DIOXIDE LEVEL 27 MEQ/L (21-32); CHLORIDE LEVEL 104 MEQ/L (98-107); CREATININE FOR GFR 0.43 MG/DL (0.55-1.30); GLOMERULAR FILTRATION RATE > 60.0 (>51); GLUCOSE, FASTING 143 MG/DL (70-100); POTASSIUM SERUM 4.1 MEQ/L (3.5-5.1); SODIUM LEVEL 138 MEQ/L (136-145); TOTAL PROTEIN 4.3 GM/DL (6.4-8.2)
[2022-04-10] MEDS: MORPHINE 2 MG/ML 1ML VIAL IV PRN (15:11)
[2022-04-10] MEDS ORDERED: AMINO AC/ELECTROLYTE/DEX/CALC 2,566 ML IV SCH (18:00)
[2022-04-10] MEDS: PANTOPRAZOLE 40MG VIAL IV SCH (22:19)
[2022-04-10] MEDS ORDERED: FUROSEMIDE 20MG/2ML VIAL (J1940) IV ONE (23:00)
[2022-04-11 01:11] VITALS: BP 123/70
[2022-04-11 02:00] VITALS: O2SAT 94
[2022-04-11 05:03] VITALS: BP 162/78
[2022-04-11] MEDS: INSULIN LISPRO (NovoLOG) PER UNIT SC SCH ×3 (05:16→16:48)
[2022-04-11] MEDS: AZTREONAM 1 GM in D5W MINI-BAG PLUS 50 ML IV SCH ×3 (05:59→22:06)
[2022-04-11] MEDS: metroNIDAZOLE 500 MG in IV 1 EA IV SCH ×2 (08:26→16:48)
[2022-04-11] MEDS: BUPRENORPHINE/NALOXONE 2-0.5MG SUBLINGUAL TABLET(SUBOXONE) SL SCH (08:27)
[2022-04-11] MEDS: METOPROLOL TART 25 MG TABLET PO SCH ×2 (08:28→22:06)
[2022-04-11 08:29] LABS: BLOOD UREA NITROGEN 8 MG/DL (7-18); CALCIUM LEVEL 7.4 MG/DL (8.5-10.1); CARBON DIOXIDE LEVEL 29 MEQ/L (21-32); CHLORIDE LEVEL 103 MEQ/L (98-107); CREATININE FOR GFR 0.33 MG/DL (0.55-1.30); GLOMERULAR FILTRATION RATE > 60.0 (>51); GLUCOSE, FASTING 107 MG/DL (70-100); POTASSIUM SERUM 3.5 MEQ/L (3.5-5.1); SODIUM LEVEL 139 MEQ/L (136-145)
[2022-04-11 09:58] VITALS: BP 158/80
[2022-04-11] MEDS: MORPHINE 2 MG/ML 1ML VIAL IV PRN ×3 (11:26→19:04)
[2022-04-11] MEDS: ALBUTEROL SULFATE 2.5 MG/0.5 ML INH NEB SOLN INH SCH ×3 (11:35→19:46)
[2022-04-11] MEDS ORDERED: FUROSEMIDE 20MG/2ML VIAL (J1940) IV ONE (13:05)
[2022-04-11 14:21] VITALS: BP 156/89
[2022-04-11] MEDS ORDERED: MULTIVITAMIN -ADULT INJECTION 10 ML, ZINC/COPPER/MANGANESE/SELENIUM 1 ML, POTASSIUM CHL... IV SCH ×4 (18:00)
[2022-04-11] MEDS ORDERED: INSULIN LISPRO (NovoLOG) PER UNIT SC SCH (18:00)
[2022-04-11] MEDS: SODIUM CHLORIDE 0.9% INJ 10 ML SYR IV SCH (18:49)
[2022-04-11 20:35] VITALS: BP 148/85
[2022-04-11] MEDS: PANTOPRAZOLE 40MG VIAL IV SCH (22:06)
[2022-04-12] VITALS (16 sets, daily range): BP systolic 138–172; BP diastolic 62–96
[2022-04-12] MEDS: metroNIDAZOLE 500 MG in IV 1 EA IV SCH ×2 (00:01→08:46)
[2022-04-12] MEDS: MORPHINE 2 MG/ML 1ML VIAL IV PRN ×3 (00:06→21:51)
[2022-04-12] MEDS: INSULIN LISPRO (NovoLOG) PER UNIT SC SCH ×4 (05:57→18:41)
[2022-04-12] MEDS: SODIUM CHLORIDE 0.9% INJ 10 ML SYR IV SCH ×2 (05:57→18:23)
[2022-04-12] MEDS: AZTREONAM 1 GM in D5W MINI-BAG PLUS 50 ML IV SCH ×2 (06:01→16:10)
[2022-04-12 08:13] LABS: HEMATOCRIT 23.3 % (36.0-47.0); HEMOGLOBIN 7.5 g/dl (12.0-15.5); MEAN CORPUSCULAR HEMOGLOBIN 29.4 pg (27.0-33.0); MEAN CORPUSCULAR HGB CONC 32.2 g/dl (32.0-36.5); MEAN CORPUSCULAR VOLUME 91.4 fl (80.0-96.0); PLATELET COUNT, AUTOMATED 575 10^3/uL (150-450); RED BLOOD COUNT 2.55 10^6/uL (4.00-5.40); WHITE BLOOD COUNT 24.4 10^3/uL (4.0-10.0)
[2022-04-12] MEDS: ALBUTEROL SULFATE 2.5 MG/0.5 ML INH NEB SOLN INH SCH ×4 (08:26→20:00)
[2022-04-12 08:39] LABS: ALT/SGPT 7 U/L (12-78); ANISOCYTOSIS 1+; BILIRUBIN,TOTAL 0.1 MG/DL (0.2-1.0); BLOOD UREA NITROGEN 7 MG/DL (7-18); CALCIUM LEVEL 7.5 MG/DL (8.5-10.1); CARBON DIOXIDE LEVEL 27 MEQ/L (21-32); CHLORIDE LEVEL 104 MEQ/L (98-107); CREATININE FOR GFR 0.26 MG/DL (0.55-1.30); GLOMERULAR FILTRATION RATE > 60.0 (>51); GLUCOSE, FASTING 124 MG/DL (70-100); LYMPHOCYTES 7 % (16-44); METAMYELOCYTES 1 % (0-0); MONOCYTES 3 % (0-5); NEUTROPHILS 88 % (28-66); PLATELET ESTIMATE INCREASED (NORMAL); POTASSIUM SERUM 3.6 MEQ/L (3.5-5.1); SODIUM LEVEL 141 MEQ/L (136-145); TOTAL PROTEIN 4.4 GM/DL (6.4-8.2)
[2022-04-12] MEDS: METOPROLOL TART 25 MG TABLET PO SCH ×2 (08:47→21:33)
[2022-04-12] MEDS: BUPRENORPHINE/NALOXONE 2-0.5MG SUBLINGUAL TABLET(SUBOXONE) SL SCH (08:56)
[2022-04-12] MEDS ORDERED: METOPROLOL 5 MG/5 ML VIAL As Ordered ONE (10:54)
[2022-04-12] MEDS ORDERED: ENOXAPARIN 40MG/0.4ML SYRINGE (J1650 PER 10MG) SC ONE (11:10)
[2022-04-12 11:27] LABS: HEMATOCRIT 22.7 % (36.0-47.0); HEMOGLOBIN 7.2 g/dl (12.0-15.5); MEAN CORPUSCULAR HEMOGLOBIN 29.4 pg (27.0-33.0); MEAN CORPUSCULAR HGB CONC 31.7 g/dl (32.0-36.5); MEAN CORPUSCULAR VOLUME 92.7 fl (80.0-96.0); PLATELET COUNT, AUTOMATED 552 10^3/uL (150-450); RED BLOOD COUNT 2.45 10^6/uL (4.00-5.40); WHITE BLOOD COUNT 23.6 10^3/uL (4.0-10.0)
[2022-04-12 11:49] LABS: ALT/SGPT 6 U/L (12-78); BILIRUBIN,TOTAL 0.2 MG/DL (0.2-1.0); BLOOD UREA NITROGEN 6 MG/DL (7-18); C REACTIVE PROTEIN QUANTITATIV 5.97 MG/DL (0.00-0.30); CALCIUM LEVEL 6.9 MG/DL (8.5-10.1); CARBON DIOXIDE LEVEL 23 MEQ/L (21-32); CHLORIDE LEVEL 109 MEQ/L (98-107); CREATININE FOR GFR 0.29 MG/DL (0.55-1.30); GLOMERULAR FILTRATION RATE > 60.0 (>51); GLUCOSE, FASTING 130 MG/DL (70-100); MAGNESIUM LEVEL 1.6 MG/DL (1.8-2.4); NT-PRO BNP 2644 PG/ML (<125); PHOSPHORUS LEVEL 2.4 MG/DL (2.5-4.9); SODIUM LEVEL 144 MEQ/L (136-145); TOTAL PROTEIN 4.1 GM/DL (6.4-8.2)
[2022-04-12 11:53] LABS: CK-MB VALUE MASS 2.1 NG/ML (<3.6)
[2022-04-12 12:01] LABS: ANISOCYTOSIS 1+; LYMPHOCYTES 5 % (16-44); METAMYELOCYTES 1 % (0-0); MONOCYTES 5 % (0-5); MYELOCYTES 2 % (0-0); NEUTROPHILS 87 % (28-66); PLATELET ESTIMATE INCREASED (NORMAL)
[2022-04-12 12:34] LABS: ERYTHROCYTE SEDIMENTATION RATE 127 mm/hr (0-30)
[2022-04-12] MEDS ORDERED: CALCIUM GLUCONATE 1,000 MG in D5W MINI-BAG PLUS 100 ML IV ONE (15:00)
[2022-04-12] MEDS ORDERED: MAG SULF 1GM/100ML (MAG RUN) 1 GM in IV 1 EA IV ONE (16:00)
[2022-04-12] MEDS ORDERED: POTASSIUM PHOSPHATE INJ 30 MMOL in D5W 500 ML IV ONE (17:00)
[2022-04-12] MEDS ORDERED: AMINO AC/ELECTROLYTE/DEX/CALC 2,566 ML IV SCH (18:00)
[2022-04-12] MEDS: MEROPENEM INJ 1 GM in IV 1 EA IV SCH (19:21)
[2022-04-12] MEDS ORDERED: ISOVUE-370 76% 100ML VIAL As Ordered ONE (19:57)
[2022-04-12] MEDS: PANTOPRAZOLE 40MG VIAL IV SCH (21:32)
[2022-04-13] VITALS (8 sets, daily range): BP systolic 146–190; BP diastolic 72–97
[2022-04-13] MEDS ORDERED: hydrALAZINE 20MG/ML 1ML VIAL (J0360 PER 20MG) IV PRN (00:25)
[2022-04-13] MEDS: KCL 20MEQ IN 100ML SWI (KRUN) 20 MEQ in IV 1 EA IV PRN ×4 (00:32→01:52)
[2022-04-13] MEDS: INSULIN LISPRO (NovoLOG) PER UNIT SC SCH ×4 (00:33→17:57)
[2022-04-13] MEDS: MORPHINE 2 MG/ML 1ML VIAL IV PRN ×2 (01:02→17:43)
[2022-04-13] MEDS ORDERED: FUROSEMIDE 20MG/2ML VIAL (J1940) IV ONE ×2 (01:25→13:00)
[2022-04-13] MEDS: MEROPENEM INJ 1 GM in IV 1 EA IV SCH ×3 (03:03→17:43)
[2022-04-13 05:22] LABS: BASO # 0.1 10^3/uL (0.0-0.2); BASO % 0.5 % (0.0-1.0); EOS % 0.1 % (0.0-3.0); HEMATOCRIT 35.6 % (36.0-47.0); LYMPH # 1.3 10^3/uL (1.5-5.0); LYMPH % 5.1 % (24.0-44.0); MEAN CORPUSCULAR HEMOGLOBIN 30.3 pg (27.0-33.0); MEAN CORPUSCULAR HGB CONC 34.6 g/dl (32.0-36.5); MEAN CORPUSCULAR VOLUME 87.7 fl (80.0-96.0); MONO # 1.1 10^3/uL (0.0-0.8); MONO % 4.4 % (2.0-8.0); NEUTROPHILS # 22.1 10^3/uL (1.5-8.5); NEUTROPHILS % 85.9 % (36.0-66.0); PLATELET COUNT, AUTOMATED 545 10^3/uL (150-450); RED BLOOD COUNT 4.06 10^6/uL (4.00-5.40); WHITE BLOOD COUNT 25.8 10^3/uL (4.0-10.0)
[2022-04-13 05:28] LABS: HEMOGLOBIN 12.3 g/dl (12.0-15.5)
[2022-04-13 05:51] LABS: ALBUMIN 1.2 GM/DL (3.2-5.2); ALT/SGPT 9 U/L (12-78); BILIRUBIN,TOTAL 0.3 MG/DL (0.2-1.0); BLOOD UREA NITROGEN 7 MG/DL (7-18); CALCIUM LEVEL 7.8 MG/DL (8.5-10.1); CARBON DIOXIDE LEVEL 25 MEQ/L (21-32); CHLORIDE LEVEL 105 MEQ/L (98-107); CREATININE FOR GFR 0.31 MG/DL (0.55-1.30); GLOMERULAR FILTRATION RATE > 60.0 (>51); GLUCOSE, FASTING 127 MG/DL (70-100); POTASSIUM SERUM 3.7 MEQ/L (3.5-5.1); SODIUM LEVEL 140 MEQ/L (136-145); TOTAL PROTEIN 4.9 GM/DL (6.4-8.2)
[2022-04-13] MEDS: SODIUM CHLORIDE 0.9% INJ 10 ML SYR IV SCH ×2 (06:32→17:57)
[2022-04-13 08:21] LABS: MAGNESIUM LEVEL 1.9 MG/DL (1.8-2.4); PHOSPHORUS LEVEL 3.1 MG/DL (2.5-4.9)
[2022-04-13] MEDS: ALBUTEROL SULFATE 2.5 MG/0.5 ML INH NEB SOLN INH SCH ×4 (08:45→19:54)
[2022-04-13] MEDS ORDERED: ENOXAPARIN 40MG/0.4ML SYRINGE (J1650 PER 10MG) SC SCH (09:00)
[2022-04-13] MEDS: BUPRENORPHINE/NALOXONE 2-0.5MG SUBLINGUAL TABLET(SUBOXONE) SL SCH (09:00)
[2022-04-13] MEDS: METOPROLOL TART 25 MG TABLET PO SCH ×3 (09:34→21:23)
[2022-04-13] MEDS ORDERED: MULTIVITAMIN -ADULT INJECTION 10 ML, ZINC/COPPER/MANGANESE/SELENIUM 1 ML, POTASSIUM CHL... IV SCH ×4 (18:00)
[2022-04-13] MEDS: PANTOPRAZOLE 40MG VIAL IV SCH (21:22)
[2022-04-14] VITALS: BP 140/80
[2022-04-14] MEDS: INSULIN LISPRO (NovoLOG) PER UNIT SC SCH ×4 (00:06→18:18)
[2022-04-14] MEDS: MEROPENEM INJ 1 GM in IV 1 EA IV SCH ×3 (02:19→18:19)
[2022-04-14 04:00] VITALS: BP 160/84
[2022-04-14] MEDS: IPRATROPIUM 0.5MG/ALBUTEROL 2.5MG INH SOL UD 3ML (DUONEB) NEB PRN ×2 (04:53→23:40)
[2022-04-14] MEDS: SODIUM CHLORIDE 0.9% INJ 10 ML SYR IV SCH ×2 (05:50→18:19)
[2022-04-14 07:45] VITALS: BP 150/100
[2022-04-14] MEDS: METOPROLOL TART 25 MG TABLET PO SCH ×3 (08:36→20:28)
[2022-04-14] MEDS: BUPRENORPHINE/NALOXONE 2-0.5MG SUBLINGUAL TABLET(SUBOXONE) SL SCH (08:36)
[2022-04-14] MEDS: ALBUTEROL SULFATE 2.5 MG/0.5 ML INH NEB SOLN INH SCH ×4 (08:59→19:18)
[2022-04-14 09:48] LABS: BASO # 0.1 10^3/uL (0.0-0.2); BASO % 0.3 % (0.0-1.0); EOS % 0.1 % (0.0-3.0); HEMATOCRIT 38.4 % (36.0-47.0); LYMPH # 1.2 10^3/uL (1.5-5.0); LYMPH % 5.1 % (24.0-44.0); MEAN CORPUSCULAR HEMOGLOBIN 30.9 pg (27.0-33.0); MEAN CORPUSCULAR HGB CONC 33.9 g/dl (32.0-36.5); MEAN CORPUSCULAR VOLUME 91.2 fl (80.0-96.0); MONO % 4.4 % (2.0-8.0); NEUTROPHILS # 20.2 10^3/uL (1.5-8.5); NEUTROPHILS % 88.3 % (36.0-66.0); PLATELET COUNT, AUTOMATED 597 10^3/uL (150-450); RED BLOOD COUNT 4.21 10^6/uL (4.00-5.40); WHITE BLOOD COUNT 22.9 10^3/uL (4.0-10.0)
[2022-04-14 10:23] LABS: BLOOD UREA NITROGEN 13 MG/DL (7-18); CALCIUM LEVEL 8.4 MG/DL (8.5-10.1); CARBON DIOXIDE LEVEL 25 MEQ/L (21-32); CHLORIDE LEVEL 105 MEQ/L (98-107); CREATININE FOR GFR 0.34 MG/DL (0.55-1.30); GLOMERULAR FILTRATION RATE > 60.0 (>51); GLUCOSE, FASTING 117 MG/DL (70-100); POTASSIUM SERUM 4.4 MEQ/L (3.5-5.1); SODIUM LEVEL 139 MEQ/L (136-145)
[2022-04-14 12:26] VITALS: BP 140/80
[2022-04-14 16:12] VITALS: BP 140/80
[2022-04-14] MEDS: MORPHINE 2 MG/ML 1ML VIAL IV PRN ×2 (16:34→20:29)
[2022-04-14] MEDS ORDERED: AMINO AC/ELECTROLYTE/DEX/CALC 2,566 ML IV SCH (18:00)
[2022-04-14 20:00] VITALS: BP 149/81
[2022-04-14] MEDS: PANTOPRAZOLE 40MG VIAL IV SCH (20:28)
[2022-04-15] VITALS: BP 164/82
[2022-04-15] MEDS: INSULIN LISPRO (NovoLOG) PER UNIT SC SCH ×5 (00:26→23:48)
[2022-04-15] MEDS: MORPHINE 2 MG/ML 1ML VIAL IV PRN ×3 (01:40→11:31)
[2022-04-15] MEDS: MEROPENEM INJ 1 GM in IV 1 EA IV SCH ×3 (01:40→17:51)
[2022-04-15 04:00] VITALS: BP 175/93
[2022-04-15] MEDS: IPRATROPIUM 0.5MG/ALBUTEROL 2.5MG INH SOL UD 3ML (DUONEB) NEB PRN (04:15)
[2022-04-15] MEDS: SODIUM CHLORIDE 0.9% INJ 10 ML SYR IV SCH ×2 (06:41→17:52)
[2022-04-15] MEDS: ALBUTEROL SULFATE 2.5 MG/0.5 ML INH NEB SOLN INH SCH ×4 (07:00→20:04)
[2022-04-15 08:00] VITALS: BP 159/88
[2022-04-15] MEDS: BUPRENORPHINE/NALOXONE 2-0.5MG SUBLINGUAL TABLET(SUBOXONE) SL SCH (08:34)
[2022-04-15] MEDS: METOPROLOL TART 25 MG TABLET PO SCH ×3 (08:34→20:58)
[2022-04-15 09:09] LABS: BASO # 0.1 10^3/uL (0.0-0.2); BASO % 0.3 % (0.0-1.0); EOS % 0.1 % (0.0-3.0); HEMATOCRIT 33.9 % (36.0-47.0); HEMOGLOBIN 11.3 g/dl (12.0-15.5); LYMPH % 6.3 % (24.0-44.0); MEAN CORPUSCULAR HEMOGLOBIN 30.1 pg (27.0-33.0); MEAN CORPUSCULAR HGB CONC 33.3 g/dl (32.0-36.5); MEAN CORPUSCULAR VOLUME 90.4 fl (80.0-96.0); MONO # 0.9 10^3/uL (0.0-0.8); MONO % 5.6 % (2.0-8.0); NEUTROPHILS # 13.8 10^3/uL (1.5-8.5); NEUTROPHILS % 85.9 % (36.0-66.0); PLATELET COUNT, AUTOMATED 645 10^3/uL (150-450); RED BLOOD COUNT 3.75 10^6/uL (4.00-5.40); WHITE BLOOD COUNT 16.1 10^3/uL (4.0-10.0)
[2022-04-15 12:00] VITALS: BP 159/94
[2022-04-15] MEDS ORDERED: ACETAMINOPHEN TAB 650MG DOSE (2X325MG) PO PRN (12:55)
[2022-04-15] MEDS: PANTOPRAZOLE 40MG TAB (PROTONIX) PO SCH (14:27)
[2022-04-15] MEDS: NORCO, ANEXSIA 5/325MG TABLET (HYDROcodone/ACETAMINOPHEN) PO PRN ×2 (15:54→21:49)
[2022-04-15 16:00] VITALS: BP 160/95
[2022-04-15] MEDS ORDERED: MULTIVITAMIN -ADULT INJECTION 10 ML, ZINC/COPPER/MANGANESE/SELENIUM 1 ML in AMINO AC/EL... IV SCH (18:00)
[2022-04-15 20:00] VITALS: BP 152/78
[2022-04-16] VITALS (7 sets, daily range): BP systolic 144–164; BP diastolic 70–90
[2022-04-16] MEDS: IPRATROPIUM 0.5MG/ALBUTEROL 2.5MG INH SOL UD 3ML (DUONEB) NEB PRN ×2 (00:31→03:46)
[2022-04-16] MEDS: MEROPENEM INJ 1 GM in IV 1 EA IV SCH ×3 (01:23→18:32)
[2022-04-16] MEDS: INSULIN LISPRO (NovoLOG) PER UNIT SC SCH ×3 (06:06→17:10)
[2022-04-16] MEDS: SODIUM CHLORIDE 0.9% INJ 10 ML SYR IV SCH ×2 (06:06→18:33)
[2022-04-16] MEDS: NORCO, ANEXSIA 5/325MG TABLET (HYDROcodone/ACETAMINOPHEN) PO PRN ×3 (06:06→18:55)
[2022-04-16 06:45] LABS: BASO % 0.2 % (0.0-1.0); EOS % 0.2 % (0.0-3.0); HEMATOCRIT 35.7 % (36.0-47.0); HEMOGLOBIN 11.9 g/dl (12.0-15.5); LYMPH % 8.6 % (24.0-44.0); MEAN CORPUSCULAR HEMOGLOBIN 30.9 pg (27.0-33.0); MEAN CORPUSCULAR HGB CONC 33.3 g/dl (32.0-36.5); MEAN CORPUSCULAR VOLUME 92.7 fl (80.0-96.0); MONO # 0.7 10^3/uL (0.0-0.8); MONO % 5.6 % (2.0-8.0); NEUTROPHILS # 10.3 10^3/uL (1.5-8.5); NEUTROPHILS % 84.3 % (36.0-66.0); PLATELET COUNT, AUTOMATED 690 10^3/uL (150-450); RED BLOOD COUNT 3.85 10^6/uL (4.00-5.40); WHITE BLOOD COUNT 12.2 10^3/uL (4.0-10.0)
[2022-04-16 07:19] LABS: ALBUMIN 1.6 GM/DL (3.2-5.2); ALT/SGPT 16 U/L (12-78); BILIRUBIN,TOTAL 0.3 MG/DL (0.2-1.0); BLOOD UREA NITROGEN 12 MG/DL (7-18); CALCIUM LEVEL 8.3 MG/DL (8.5-10.1); CARBON DIOXIDE LEVEL 29 MEQ/L (21-32); CHLORIDE LEVEL 108 MEQ/L (98-107); CREATININE FOR GFR 0.34 MG/DL (0.55-1.30); GLOMERULAR FILTRATION RATE > 60.0 (>51); GLUCOSE, FASTING 120 MG/DL (70-100); POTASSIUM SERUM 3.6 MEQ/L (3.5-5.1); SODIUM LEVEL 142 MEQ/L (136-145); TOTAL PROTEIN 6.4 GM/DL (6.4-8.2)
[2022-04-16] MEDS: ALBUTEROL SULFATE 2.5 MG/0.5 ML INH NEB SOLN INH SCH ×4 (07:39→19:56)
[2022-04-16] MEDS: BUPRENORPHINE/NALOXONE 2-0.5MG SUBLINGUAL TABLET(SUBOXONE) SL SCH (09:00)
[2022-04-16] MEDS: METOPROLOL TART 25 MG TABLET PO SCH ×3 (09:58→20:57)
[2022-04-16] MEDS: PANTOPRAZOLE 40MG TAB (PROTONIX) PO SCH (09:59)
[2022-04-16] MEDS: SODIUM CHLORIDE 0.9% INJ 10 ML SYR IV PRN (11:06)
[2022-04-16] MEDS ORDERED: AMINO AC/ELECTROLYTE/DEX/CALC 2,566 ML IV SCH (18:00)
[2022-04-17] MEDS: INSULIN LISPRO (NovoLOG) PER UNIT SC SCH ×4 (00:18→18:00)
[2022-04-17] MEDS: NORCO, ANEXSIA 5/325MG TABLET (HYDROcodone/ACETAMINOPHEN) PO PRN ×4 (00:21→20:45)
[2022-04-17] MEDS: MEROPENEM INJ 1 GM in IV 1 EA IV SCH ×3 (01:56→17:49)
[2022-04-17 04:00] VITALS: BP 158/88
[2022-04-17 06:00] VITALS: BP 158/88
[2022-04-17] MEDS: SODIUM CHLORIDE 0.9% INJ 10 ML SYR IV SCH ×2 (06:14→17:50)
[2022-04-17] MEDS: ALBUTEROL SULFATE 2.5 MG/0.5 ML INH NEB SOLN INH SCH ×4 (07:02→18:57)
[2022-04-17 07:45] VITALS: BP 154/86
[2022-04-17] MEDS: BUPRENORPHINE/NALOXONE 2-0.5MG SUBLINGUAL TABLET(SUBOXONE) SL SCH (10:00)
[2022-04-17] MEDS: PANTOPRAZOLE 40MG TAB (PROTONIX) PO SCH (10:26)
[2022-04-17] MEDS: METOPROLOL TART 25 MG TABLET PO SCH ×3 (10:27→20:44)
[2022-04-17 15:00] VITALS: BP 143/89
[2022-04-17 22:00] VITALS: BP 146/88
[2022-04-18] MEDS: MEROPENEM INJ 1 GM in IV 1 EA IV SCH ×3 (01:32→18:21)
[2022-04-18] MEDS: SODIUM CHLORIDE 0.9% INJ 10 ML SYR IV PRN (02:45)
[2022-04-18] MEDS: NORCO, ANEXSIA 5/325MG TABLET (HYDROcodone/ACETAMINOPHEN) PO PRN ×3 (04:09→21:55)
[2022-04-18] MEDS: SODIUM CHLORIDE 0.9% INJ 10 ML SYR IV SCH ×2 (04:10→18:28)
[2022-04-18 06:00] VITALS: BP 146/89
[2022-04-18] MEDS: INSULIN LISPRO (NovoLOG) PER UNIT SC SCH ×2 (06:00)
[2022-04-18] MEDS: ALBUTEROL SULFATE 2.5 MG/0.5 ML INH NEB SOLN INH SCH ×4 (08:10→20:03)
[2022-04-18] MEDS: BUPRENORPHINE/NALOXONE 2-0.5MG SUBLINGUAL TABLET(SUBOXONE) SL SCH (09:19)
[2022-04-18] MEDS: PANTOPRAZOLE 40MG TAB (PROTONIX) PO SCH (09:19)
[2022-04-18] MEDS: METOPROLOL TART 25 MG TABLET PO SCH ×3 (09:19→21:00)
[2022-04-18] MEDS: MORPHINE 2 MG/ML 1ML VIAL IV PRN (10:26)
[2022-04-18 14:00] VITALS: BP 98/62
[2022-04-18] MEDS ORDERED: NS 500 ML IV ONE (14:30)
[2022-04-18 15:15] VITALS: BP 104/62
[2022-04-18 20:51] VITALS: BP 104/59
[2022-04-18 22:00] VITALS: BP 114/74
[2022-04-19] MEDS: MEROPENEM INJ 1 GM in IV 1 EA IV SCH ×2 (01:05→10:15)
[2022-04-19] MEDS: SODIUM CHLORIDE 0.9% INJ 10 ML SYR IV PRN (02:08)
[2022-04-19] MEDS: NORCO, ANEXSIA 5/325MG TABLET (HYDROcodone/ACETAMINOPHEN) PO PRN ×2 (04:15→10:20)
[2022-04-19] MEDS: SODIUM CHLORIDE 0.9% INJ 10 ML SYR IV SCH (04:16)
[2022-04-19 06:00] VITALS: BP 134/84
[2022-04-19 06:09] LABS: BASO # 0.1 10^3/uL (0.0-0.2); BASO % 0.8 % (0.0-1.0); EOS # 0.1 10^3/uL (0.0-0.5); EOS % 1.2 % (0.0-3.0); HEMATOCRIT 32.9 % (36.0-47.0); HEMOGLOBIN 10.7 g/dl (12.0-15.5); LYMPH # 1.5 10^3/uL (1.5-5.0); LYMPH % 14.1 % (24.0-44.0); MEAN CORPUSCULAR HGB CONC 32.5 g/dl (32.0-36.5); MEAN CORPUSCULAR VOLUME 95.4 fl (80.0-96.0); MONO # 0.8 10^3/uL (0.0-0.8); MONO % 8.1 % (2.0-8.0); NEUTROPHILS # 7.8 10^3/uL (1.5-8.5); NEUTROPHILS % 75.2 % (36.0-66.0); PLATELET COUNT, AUTOMATED 587 10^3/uL (150-450); RED BLOOD COUNT 3.45 10^6/uL (4.00-5.40); WHITE BLOOD COUNT 10.4 10^3/uL (4.0-10.0)
[2022-04-19 06:27] LABS: ALT/SGPT 31 U/L (12-78); BILIRUBIN,TOTAL 0.4 MG/DL (0.2-1.0); BLOOD UREA NITROGEN 20 MG/DL (7-18); C REACTIVE PROTEIN QUANTITATIV 0.57 MG/DL (0.00-0.30); CALCIUM LEVEL 8.5 MG/DL (8.5-10.1); CARBON DIOXIDE LEVEL 25 MEQ/L (21-32); CHLORIDE LEVEL 108 MEQ/L (98-107); CREATININE FOR GFR 0.31 MG/DL (0.55-1.30); GLOMERULAR FILTRATION RATE > 60.0 (>51); GLUCOSE, FASTING 85 MG/DL (70-100); POTASSIUM SERUM 4.4 MEQ/L (3.5-5.1); SODIUM LEVEL 140 MEQ/L (136-145); TOTAL PROTEIN 6.1 GM/DL (6.4-8.2)
[2022-04-19] MEDS: ALBUTEROL SULFATE 2.5 MG/0.5 ML INH NEB SOLN INH SCH ×3 (07:18→15:44)
[2022-04-19] MEDS ORDERED: PANT40TA29 PO (09:43)
[2022-04-19] MEDS ORDERED: METO1TAB87 PO (09:43)
[2022-04-19 10:00] VITALS: BP 124/88
[2022-04-19] MEDS: BUPRENORPHINE/NALOXONE 2-0.5MG SUBLINGUAL TABLET(SUBOXONE) SL SCH (10:11)
[2022-04-19] MEDS: PANTOPRAZOLE 40MG TAB (PROTONIX) PO SCH (10:11)
[2022-04-19 10:14] VITALS: BP 124/88
[2022-04-19] MEDS: METOPROLOL TART 25 MG TABLET PO SCH (10:14)
[2022-04-19 14:20] VITALS: BP 100/67
== END 2022-04-19 15:40 | disposition home health service (06) | DRG 711 ==
LOC: M ED 17:38 → M ED INP 22:41 → M MS5PR 04-07 01:01 → M ICU 04-12 11:17 → M PCU 04-12 14:42 → M MS5PR 04-17 14:49
PROVIDERS: ADMIT Surgery; ATTEND Surgery
PROC: 0W9F0ZZ Drainage of Abdominal Wall, Open Approach (ICD-10-PCS; 2022-04-06)
PROC: 02HV33Z Insertion of Infusion Device into Superior Vena Cava, Percutaneous Approach (ICD-10-PCS; 2022-04-07)
PROC: 0DTB0ZZ Resection of Ileum, Open Approach (ICD-10-PCS; 2022-04-08)
PROC: 0D1B0J4 Bypass Ileum to Cutaneous with Synthetic Substitute, Open Approach (ICD-10-PCS; 2022-04-08)
PROC: 0DN80ZZ Release Small Intestine, Open Approach (ICD-10-PCS; 2022-04-08)
PROC: 3E0436Z Introduction of Nutritional Substance into Central Vein, Percutaneous Approach (ICD-10-PCS; 2022-04-08)
PROC: 0DTH0ZZ Resection of Cecum, Open Approach (ICD-10-PCS; principal; 2022-04-08 08:45)
PROC: 30233N1 Transfusion of Nonautologous Red Blood Cells into Peripheral Vein, Percutaneous Approach (ICD-10-PCS; 2022-04-12)
DX: T81.43XA Infection following a procedure, organ and space surgical site, initial encounter (principal); E43 Unspecified severe protein-calorie malnutrition; K65.1 Peritoneal abscess; K63.2 Fistula of intestine; J18.9 Pneumonia, unspecified organism; J90 Pleural effusion, not elsewhere classified; R64 Cachexia; I47.1 Supraventricular tachycardia; F11.20 Opioid dependence, uncomplicated; E83.39 Other disorders of phosphorus metabolism; E83.42 Hypomagnesemia; E83.51 Hypocalcemia; K59.00 Constipation, unspecified; D75.838 Other thrombocytosis; R60.0 Localized edema; I10 Essential (primary) hypertension; F41.9 Anxiety disorder, unspecified; F32.A Depression, unspecified; F17.200 Nicotine dependence, unspecified, uncomplicated; M54.9 Dorsalgia, unspecified; I25.10 Atherosclerotic heart disease of native coronary artery without angina pectoris; J44.9 Chronic obstructive pulmonary disease, unspecified; J30.9 Allergic rhinitis, unspecified; Y83.8 Other surgical procedures as the cause of abnormal reaction of the patient, or of later complication, without mention of misadventure at the time of the procedure; K66.0 Peritoneal adhesions (postprocedural) (postinfection); D64.9 Anemia, unspecified; E87.6 Hypokalemia; R91.8 Other nonspecific abnormal finding of lung field; B96.20 Unspecified Escherichia coli [E. coli] as the cause of diseases classified elsewhere; B96.1 Klebsiella pneumoniae [K. pneumoniae] as the cause of diseases classified elsewhere; B95.2 Enterococcus as the cause of diseases classified elsewhere; Z79.899 Other long term (current) drug therapy

== ENCOUNTER → 2022-04-06 | Outpatient (CLI) | payer OTHER ==
[~2022-04-06] MED LIST changes: +BUPR1FIL3 SL; +BUPR1FIL35 SL; +GABA600T4 PO; +HYDR-3363 PO; +IBUP-1720 PO; +METO1TAB87 PO; +METO25TA4 PO
[2022-04-06 14:16] LABS: ALBUMIN 1.6 GM/DL (3.2-5.2); ALT/SGPT 15 U/L (12-78); BILIRUBIN,TOTAL 0.2 MG/DL (0.2-1.0); BLOOD UREA NITROGEN 14 MG/DL (7-18); CALCIUM LEVEL 7.8 MG/DL (8.5-10.1); CARBON DIOXIDE LEVEL 30 MEQ/L (21-32); CHLORIDE LEVEL 101 MEQ/L (98-107); CREATININE FOR GFR 0.36 MG/DL (0.55-1.30); GLOMERULAR FILTRATION RATE > 60.0 (>51); GLUCOSE, FASTING 61 MG/DL (70-100); POTASSIUM SERUM 4.1 MEQ/L (3.5-5.1); SODIUM LEVEL 137 MEQ/L (136-145)
[2022-04-06 14:32] LABS: HEMOGLOBIN 9.6 g/dl (12.0-15.5); MEAN CORPUSCULAR HEMOGLOBIN 30.1 pg (27.0-33.0); RED BLOOD COUNT 3.19 10^6/uL (4.00-5.40); WHITE BLOOD COUNT 21.5 10^3/uL (4.0-10.0)
[2022-04-06 15:11] LABS: PLATELET COUNT, AUTOMATED 1167 10^3/uL (150-450)
== END ==
LOC: M LAB 11:40
PROVIDERS: ATTEND Physician Assistant
DX: Z90.49 Acquired absence of other specified parts of digestive tract (principal)

== ENCOUNTER 2022-06-01 20:55 | Emergency (ER) | payer OTHER ==
[~2022-06-01] VITALS: Ht 149.9 cm; Wt 33.6 kg
[2022-06-01 20:55] VITALS: BP 113/81
[~2022-06-01 20:55] MED LIST changes: +IBUP-1720 PO; +METO25TA4 PO; +PANT40TA29 PO
== END 2022-06-01 22:45 | disposition left against medical advice (07) ==
LOC: M ED 20:55
DX: Z53.21 Procedure and treatment not carried out due to patient leaving prior to being seen by health care provider (principal)

== ENCOUNTER → 2022-06-07 | Outpatient (CLI) | payer OTHER | LOC: M WUC 15:11 | PROVIDERS: ATTEND Nurse Practitioner Family | DX: R05.9 Cough, unspecified (principal) ==

== ENCOUNTER → 2022-06-07 | Outpatient (CLI) | payer OTHER | LOC: M WUC 15:17 | PROVIDERS: ATTEND Nurse Practitioner Family | DX: R05.9 Cough, unspecified (principal) ==

== ENCOUNTER → 2022-08-02 | Outpatient (REF) | payer OTHER ==
[2022-08-02 17:39] LABS: ALBUMIN 3.9 GM/DL (3.2-5.2); ALT/SGPT 71 U/L (12-78); BILIRUBIN,TOTAL 0.3 MG/DL (0.2-1.0); BLOOD UREA NITROGEN 22 MG/DL (7-18); CARBON DIOXIDE LEVEL 26 MEQ/L (21-32); CHLORIDE LEVEL 105 MEQ/L (98-107); CHOLESTEROL LEVEL 162 MG/DL (<200); CHOLESTEROL RISK RATIO 2.612 (<5); CREATININE FOR GFR 0.84 MG/DL (0.55-1.30); FERRITIN 132 NG/ML (8-252); GLOMERULAR FILTRATION RATE > 60.0 (>51); GLUCOSE, FASTING 118 MG/DL (70-100); HDL CHOLESTEROL 62 MG/DL (>40); IRON (FE) 57 UG/DL (50-170); LDL CHOLESTEROL 76 MG/DL (<100); MAGNESIUM LEVEL 1.5 MG/DL (1.8-2.4); NON-HDL-C 100 MG/DL; PERCENT SATURATION 18.5 % (13.2-45.0); SODIUM LEVEL 136 MEQ/L (136-145); THYROID STIMULATING HORMONE 0.781 uIU/ML (0.358-3.740); TOTAL IRON BINDING CAPACITY 308 UG/DL (250-450); TOTAL PROTEIN 7.5 GM/DL (6.4-8.2); TRIGLYCERIDES LEVEL 121 MG/DL (<150)
[2022-08-02 17:41] LABS: HEMOGLOBIN A1c 5.7 %
[2022-08-02 18:02] LABS: TOTAL 25(OH) VITAMIN D 19.5 NG/ML (30.0-100.0)
[2022-08-02 18:03] LABS: VITAMIN B12 LEVEL 654 PG/ML (247-911)
== END ==
LOC: M LAB REF 16:48
PROVIDERS: ATTEND Nurse Practitioner Family
DX: Z13.228 Encounter for screening for other metabolic disorders (principal)

== ENCOUNTER → 2022-09-06 | Outpatient (CLI) | payer OTHER | LOC: M WHC 09:58 | PROVIDERS: ATTEND Nurse Practitioner Family | DX: R92.2 Inconclusive mammogram (principal) ==

== ENCOUNTER → 2022-11-29 | Outpatient (REF) | payer OTHER ==
[~2022-11-29] MED LIST changes: -MEDR10TA PO; +MEDR10TA9 PO
[2022-11-29 16:57] LABS: BASO # 0.1 10^3/uL (0.0-0.2); BASO % 0.7 % (0.0-1.0); EOS # 0.1 10^3/uL (0.0-0.5); EOS % 1.9 % (0.0-3.0); HEMATOCRIT 42.5 % (36.0-47.0); HEMOGLOBIN 13.8 g/dl (12.0-15.5); LYMPH # 1.6 10^3/uL (1.5-5.0); LYMPH % 21.2 % (24.0-44.0); MEAN CORPUSCULAR HGB CONC 32.5 g/dl (32.0-36.5); MEAN CORPUSCULAR VOLUME 92.4 fl (80.0-96.0); MONO # 0.4 10^3/uL (0.0-0.8); NEUTROPHILS # 5.1 10^3/uL (1.5-8.5); NEUTROPHILS % 69.9 % (36.0-66.0); PLATELET COUNT, AUTOMATED 334 10^3/uL (150-450); WHITE BLOOD COUNT 7.3 10^3/uL (4.0-10.0)
[2022-11-29 17:28] LABS: ALBUMIN 3.7 G/DL (3.2-5.2); ALKALINE PHOSPHATASE 177 U/L (46-116); ALT/SGPT 40 U/L (7.0-40); AST/SGOT 36 U/L (<34); BILIRUBIN,TOTAL 0.6 MG/DL (0.3-1.2); BLOOD UREA NITROGEN 22 MG/DL (9-23); CARBON DIOXIDE LEVEL 26 MMOL/L (20-31); CHLORIDE LEVEL 103 MMOL/L (98-107); CREATININE FOR GFR 0.67 MG/DL (0.55-1.30); GLOMERULAR FILTRATION RATE > 60.0 (>51); GLUCOSE, FASTING 90 MG/DL (60-100); MAGNESIUM LEVEL 1.4 MG/DL (1.8-2.4); POTASSIUM SERUM 4.7 MMOL/L (3.5-5.1); SODIUM LEVEL 138 MMOL/L (136-145); TOTAL PROTEIN 7.1 G/DL (5.7-8.2)
[2022-11-29 17:31] LABS: THYROID STIMULATING HORMONE 3.069 uIU/ML (0.55-4.78)
== END ==
LOC: M LAB REF 16:06
PROVIDERS: ATTEND Nurse Practitioner Family
DX: Z13.228 Encounter for screening for other metabolic disorders (principal)

== ENCOUNTER → 2023-03-29 | Outpatient (REF) | payer OTHER ==
[2023-03-29 17:48] LABS: ALBUMIN 3.7 G/DL (3.2-5.2); ALKALINE PHOSPHATASE 130 U/L (46-116); ALT/SGPT 32 U/L (7.0-40); AST/SGOT 36 U/L (<34); BILIRUBIN,TOTAL 0.2 MG/DL (0.3-1.2); BLOOD UREA NITROGEN 22 MG/DL (9-23); CARBON DIOXIDE LEVEL 29 MMOL/L (20-31); CHLORIDE LEVEL 104 MMOL/L (98-107); CREATININE FOR GFR 0.69 MG/DL (0.55-1.30); GLOMERULAR FILTRATION RATE > 60.0 (>51); GLUCOSE, FASTING 112 MG/DL (60-100); MAGNESIUM LEVEL 1.6 MG/DL (1.8-2.4); POTASSIUM SERUM 4.7 MMOL/L (3.5-5.1); SODIUM LEVEL 140 MMOL/L (136-145); TOTAL PROTEIN 6.9 G/DL (5.7-8.2)
== END ==
LOC: M LAB REF 16:19
PROVIDERS: ATTEND Nurse Practitioner Family
DX: E83.42 Hypomagnesemia (principal)

== ENCOUNTER → 2023-04-11 | Outpatient (CLI) | payer OTHER ==
[~2023-04-11] MED LIST changes: +GASTROGRAFIN SOLUTION 30ML As Ordered ONE; +ISOVUE-370 76% 100ML VIAL As Ordered ONE
== END ==
LOC: M RAD 12:34
PROVIDERS: ATTEND Surgery
DX: E44.0 Moderate protein-calorie malnutrition (principal); Z93.2 Ileostomy status
CPT/HCPCS: 74177; Q9963; Q9967

== ENCOUNTER → 2023-07-04 | Outpatient (REF) | payer OTHER ==
[~2023-07-04] MED LIST changes: -GASTROGRAFIN SOLUTION 30ML As Ordered ONE; -ISOVUE-370 76% 100ML VIAL As Ordered ONE; +LORA-243 PO; +MAGN500C2 PO; +MIRT1TAB17 PO; +VITA200020 PO
[2023-07-04 19:17] LABS: HEMATOCRIT 44.6 % (36.0-47.0); HEMOGLOBIN 14.3 g/dl (12.0-15.5); MEAN CORPUSCULAR HEMOGLOBIN 30.4 pg (27.0-33.0); MEAN CORPUSCULAR HGB CONC 32.1 g/dl (32.0-36.5); MEAN CORPUSCULAR VOLUME 94.9 fl (80.0-96.0); PLATELET COUNT, AUTOMATED 282 10^3/uL (150-450)
[2023-07-04 20:29] LABS: ATYPICAL LYMPH 4 % (0-5); BASOPHILS 2 % (0-1); EOSINOPHILS 4 % (0-3); LYMPHOCYTES 30 % (16-44); MONOCYTES 5 % (0-5); NEUTROPHILS 55 % (28-66); PLATELET ESTIMATE NORMAL (NORMAL)
[2023-07-04 20:56] LABS: BLOOD UREA NITROGEN 18 MG/DL (9-23); CALCIUM LEVEL 9.4 MG/DL (8.5-10.1); CARBON DIOXIDE LEVEL 32 MMOL/L (20-31); CHLORIDE LEVEL 104 MMOL/L (98-107); CREATININE FOR GFR 0.73 MG/DL (0.55-1.30); GLOMERULAR FILTRATION RATE > 60.0 (>51); GLUCOSE, FASTING 61 MG/DL (60-100); POTASSIUM SERUM 4.4 MMOL/L (3.5-5.1); SODIUM LEVEL 143 MMOL/L (136-145)
[2023-07-04 21:41] LABS: MAGNESIUM LEVEL 1.8 MG/DL (1.8-2.4)
== END ==
LOC: M LAB REF 16:39
PROVIDERS: ATTEND Nurse Practitioner Family
DX: Z01.818 Encounter for other preprocedural examination (principal)

== ENCOUNTER 2023-07-10 06:44 | Inpatient (IN) | payer OTHER ==
[~2023-07-10] VITALS: Ht 149.9 cm; Wt 37.6 kg
[~2023-07-10 06:44] MED LIST changes: +cefoTEtan DISODIUM 2 GM in D5W MINI-BAG PLUS 50 ML IV ONE
[2023-07-10] MEDS ORDERED: ONDANSETRON 4MG 2ML VIAL As Ordered ONE (06:50)
[2023-07-10] MEDS ORDERED: SUGAMMADEX SODIUM 500 MG/5 ML VIAL (BRIDION) As Ordered ONE (06:51)
[2023-07-10] MEDS ORDERED: ROCURONIUM BROMIDE 50MG/5ML VIAL As Ordered ONE ×2 (06:51→10:05)
[2023-07-10] MEDS ORDERED: propofoL 200 MG/20 ML VIAL As Ordered ONE (06:51)
[2023-07-10] MEDS ORDERED: LIDOCAINE 2% 100MG/5ML SDV (FOR ANES.) As Ordered ONE (06:51)
[2023-07-10] MEDS ORDERED: MIDAZOLAM INJ 2MG/2ML VIAL As Ordered ONE (07:02)
[2023-07-10] MEDS ORDERED: fentaNYL 250 MCG/5 ML INJECTION As Ordered ONE (07:02)
[2023-07-10] MEDS ORDERED: LR 1,000 ML IV SCH ×2 (07:10→10:35)
[2023-07-10] MEDS ORDERED: LIDOCAINE 1% SDV 30ML VIAL As Ordered ONE (07:11)
[2023-07-10] MEDS ORDERED: cefoTEtan DISODIUM 2 GM in D5W MINI-BAG PLUS 50 ML IV ONE (07:15)
[2023-07-10] MEDS ORDERED: CelecoXIB 400 MG CAP PO ONE (07:20)
[2023-07-10] MEDS ORDERED: ACETAMINOPHEN 1000MG 100ML IV BAG As Ordered ONE (07:56)
[2023-07-10] MEDS ORDERED: HYDROMORPHONE HCL 0.5 MG/ 0.5 ML SYRINGE IV PRN (10:35)
[2023-07-10] MEDS ORDERED: oxyCODONE 5MG TAB PO PRN (10:35)
[2023-07-10] MEDS ORDERED: ONDANSETRON 4MG 2ML VIAL IV PRN (10:35)
[2023-07-10] MEDS ORDERED: ALBUTEROL 90 MCG/ACT 8GM HFA INHALER INH PRN (10:40)
[2023-07-10] MEDS ORDERED: MORPHINE 4 MG/ML 1ML VIAL IV PRN (10:40)
[2023-07-10] MEDS ORDERED: LABETALOL 100MG/20ML VIAL As Ordered ONE (11:11)
[2023-07-10] MEDS: fentaNYL 100 MCG/2 ML INJECTION IV PRN ×4 (11:14→11:52)
[2023-07-10] MEDS: LABETALOL 100MG/20ML VIAL IV PRN ×4 (11:16→11:38)
[2023-07-10 12:42] VITALS: BP 121/69; TEMP 97.7; O2SAT 92
[2023-07-10] MEDS: LR 1,000 ML IV SCH ×2 (12:45→21:35)
[2023-07-10] MEDS: KETOROLAC 30 MG/ML 1ML VIAL IV SCH ×2 (12:52→17:22)
[2023-07-10 13:13] VITALS: BP 144/75; TEMP 97.9; O2SAT 93
[2023-07-10 14:37] VITALS: BP 163/84; TEMP 97.5; O2SAT 95
[2023-07-10] MEDS ORDERED: HOME MED LIST COMPLETE! XX SCH (14:40)
[2023-07-10] MEDS: PANTOPRAZOLE 40MG VIAL IV SCH (14:44)
[2023-07-10 15:16] VITALS: BP 160/83; TEMP 96.8; O2SAT 95
[2023-07-10] MEDS: GABAPENTIN 300 MG CAP PO SCH ×2 (16:25→21:35)
[2023-07-10 16:43] VITALS: BP 157/82; TEMP 98.4; O2SAT 95
[2023-07-10] MEDS: PERCOCET 5MG/325MG TAB PO PRN (18:50)
[2023-07-10] MEDS: SENOKOT S TAB PO SCH (21:35)
[2023-07-10 22:00] VITALS: BP 160/82; TEMP 98.8; O2SAT 94
[2023-07-11] VITALS (9 sets, daily range): BP systolic 124–206; BP diastolic 65–100; TEMP 96.4–99.1; O2SAT 92–95
[2023-07-11] MEDS: KETOROLAC 30 MG/ML 1ML VIAL IV SCH ×5 (00:25→23:50)
[2023-07-11 06:11] LABS: BASO % 0.4 % (0.0-1.0); EOS # 0.1 10^3/uL (0.0-0.5); EOS % 0.6 % (0.0-3.0); HEMATOCRIT 37.7 % (36.0-47.0); HEMOGLOBIN 12.5 g/dl (12.0-15.5); LYMPH # 1.9 10^3/uL (1.5-5.0); LYMPH % 19.5 % (24.0-44.0); MEAN CORPUSCULAR HEMOGLOBIN 30.4 pg (27.0-33.0); MEAN CORPUSCULAR HGB CONC 33.2 g/dl (32.0-36.5); MEAN CORPUSCULAR VOLUME 91.7 fl (80.0-96.0); MONO # 0.7 10^3/uL (0.0-0.8); MONO % 6.9 % (2.0-8.0); NEUTROPHILS % 72.4 % (36.0-66.0); PLATELET COUNT, AUTOMATED 225 10^3/uL (150-450); RED BLOOD COUNT 4.11 10^6/uL (4.00-5.40); WHITE BLOOD COUNT 9.7 10^3/uL (4.0-10.0)
[2023-07-11 06:43] LABS: BLOOD UREA NITROGEN 14 MG/DL (9-23); CALCIUM LEVEL 8.5 MG/DL (8.5-10.1); CARBON DIOXIDE LEVEL 27 MMOL/L (20-31); CHLORIDE LEVEL 108 MMOL/L (98-107); CREATININE FOR GFR 0.65 MG/DL (0.55-1.30); GLOMERULAR FILTRATION RATE > 60.0 (>51); GLUCOSE, FASTING 94 MG/DL (60-100); POTASSIUM SERUM 3.8 MMOL/L (3.5-5.1); SODIUM LEVEL 141 MMOL/L (136-145)
[2023-07-11] MEDS: GABAPENTIN 300 MG CAP PO SCH ×3 (08:58→20:31)
[2023-07-11] MEDS: SENOKOT S TAB PO SCH ×2 (08:58→20:31)
[2023-07-11] MEDS: ALVIMOPAN 12 MG CAPSULE (ENTEREG) PO SCH ×2 (08:58→20:31)
[2023-07-11] MEDS: ENOXAPARIN 30MG/0.3ML SYRINGE (J1650 PER 10MG) SC SCH (08:59)
[2023-07-11] MEDS: LR 1,000 ML IV SCH ×3 (09:00→21:32)
[2023-07-11] MEDS ORDERED: PANTOPRAZOLE 40MG TAB (PROTONIX) PO SCH (09:00)
[2023-07-11] MEDS: PANTOPRAZOLE 40MG VIAL IV SCH (13:57)
[2023-07-11] MEDS ORDERED: METOPROLOL 5 MG/5 ML VIAL IV ONE (19:35)
[2023-07-11] MEDS ORDERED: METOPROLOL TART 25 MG TABLET PO SCH (20:10)
[2023-07-11] MEDS: ACETAMINOPHEN TAB 650MG DOSE (2X325MG) PO PRN (21:32)
[2023-07-11] MEDS ORDERED: LABETALOL 100MG/20ML VIAL IV ONE (23:00)
[2023-07-12] VITALS (15 sets, daily range): BP systolic 105–195; BP diastolic 57–93; TEMP 97.9–98.6; O2SAT 95–98
[2023-07-12 01:21] LABS: HEMATOCRIT 43.5 % (36.0-47.0); MEAN CORPUSCULAR HEMOGLOBIN 30.5 pg (27.0-33.0); MEAN CORPUSCULAR VOLUME 89.5 fl (80.0-96.0); PLATELET COUNT, AUTOMATED 229 10^3/uL (150-450); RED BLOOD COUNT 4.86 10^6/uL (4.00-5.40); WHITE BLOOD COUNT 13.7 10^3/uL (4.0-10.0)
[2023-07-12 01:28] LABS: HEMOGLOBIN 14.8 g/dl (12.0-15.5)
[2023-07-12] MEDS: LABETALOL HCL 200 MG in D5W 160 ML IV SCH ×3 (01:47→04:17)
[2023-07-12] MEDS ORDERED: amLODIPine 5 MG TAB PO SCH (03:00)
[2023-07-12 04:27] LABS: BASO % 0.3 % (0.0-1.0); EOS % 0.3 % (0.0-3.0); HEMATOCRIT 40.9 % (36.0-47.0); HEMOGLOBIN 14.2 g/dl (12.0-15.5); LYMPH # 1.4 10^3/uL (1.5-5.0); MEAN CORPUSCULAR HEMOGLOBIN 30.9 pg (27.0-33.0); MEAN CORPUSCULAR HGB CONC 34.7 g/dl (32.0-36.5); MEAN CORPUSCULAR VOLUME 88.9 fl (80.0-96.0); MONO # 0.7 10^3/uL (0.0-0.8); MONO % 4.8 % (2.0-8.0); NEUTROPHILS # 11.7 10^3/uL (1.5-8.5); NEUTROPHILS % 84.1 % (36.0-66.0); PLATELET COUNT, AUTOMATED 212 10^3/uL (150-450); WHITE BLOOD COUNT 13.9 10^3/uL (4.0-10.0)
[2023-07-12 05:19] LABS: BLOOD UREA NITROGEN 9 MG/DL (9-23); CALCIUM LEVEL 8.8 MG/DL (8.5-10.1); CARBON DIOXIDE LEVEL 27 MMOL/L (20-31); CHLORIDE LEVEL 104 MMOL/L (98-107); CREATININE FOR GFR 0.57 MG/DL (0.55-1.30); GLOMERULAR FILTRATION RATE > 60.0 (>51); GLUCOSE, FASTING 124 MG/DL (60-100); POTASSIUM SERUM 2.8 MMOL/L (3.5-5.1); SODIUM LEVEL 140 MMOL/L (136-145)
[2023-07-12] MEDS ORDERED: POTASSIUM CHLORIDE 10MEQ SR TABLET PO ONE (06:00)
[2023-07-12] MEDS: dilTIAZem 30 MG TAB PO SCH ×3 (06:00→18:12)
[2023-07-12] MEDS: KETOROLAC 30 MG/ML 1ML VIAL IV SCH ×3 (06:08→18:10)
[2023-07-12 07:28] LABS: MAGNESIUM LEVEL 1.1 MG/DL (1.8-2.4)
[2023-07-12] MEDS ORDERED: MAG SULF 1GM/100ML (MAG RUN) 1 GM in IV 1 EA IV ONE (08:00)
[2023-07-12] MEDS: ALVIMOPAN 12 MG CAPSULE (ENTEREG) PO SCH ×2 (09:00→20:03)
[2023-07-12] MEDS: SENOKOT S TAB PO SCH ×2 (09:00→21:00)
[2023-07-12] MEDS ORDERED: amLODIPine 5 MG TAB PO ONE (09:00)
[2023-07-12] MEDS: ENOXAPARIN 30MG/0.3ML SYRINGE (J1650 PER 10MG) SC SCH (09:05)
[2023-07-12] MEDS: GABAPENTIN 300 MG CAP PO SCH ×3 (09:06→20:03)
[2023-07-12] MEDS: POTASSIUM CHLORIDE 10MEQ SR TABLET PO SCH ×3 (09:06→11:30)
[2023-07-12] MEDS: PANTOPRAZOLE 40MG VIAL IV SCH (16:10)
[2023-07-12] MEDS: PERCOCET 5MG/325MG TAB PO PRN (18:10)
[2023-07-13] MEDS: KETOROLAC 30 MG/ML 1ML VIAL IV SCH ×2 (00:08→06:26)
[2023-07-13] MEDS: dilTIAZem 30 MG TAB PO SCH ×5 (00:09→19:51)
[2023-07-13] MEDS: PERCOCET 5MG/325MG TAB PO PRN ×2 (00:30→06:34)
[2023-07-13 05:55] VITALS: BP 116/64; TEMP 98.2; O2SAT 94
[2023-07-13 06:16] LABS: BASO # 0.1 10^3/uL (0.0-0.2); BASO % 0.3 % (0.0-1.0); EOS # 0.3 10^3/uL (0.0-0.5); EOS % 1.7 % (0.0-3.0); HEMATOCRIT 39.7 % (36.0-47.0); HEMOGLOBIN 13.1 g/dl (12.0-15.5); LYMPH # 1.8 10^3/uL (1.5-5.0); LYMPH % 11.3 % (24.0-44.0); MEAN CORPUSCULAR HEMOGLOBIN 30.4 pg (27.0-33.0); MEAN CORPUSCULAR VOLUME 92.1 fl (80.0-96.0); MONO # 0.9 10^3/uL (0.0-0.8); MONO % 5.3 % (2.0-8.0); NEUTROPHILS # 13.2 10^3/uL (1.5-8.5); NEUTROPHILS % 80.9 % (36.0-66.0); PLATELET COUNT, AUTOMATED 205 10^3/uL (150-450); RED BLOOD COUNT 4.31 10^6/uL (4.00-5.40); WHITE BLOOD COUNT 16.3 10^3/uL (4.0-10.0)
[2023-07-13 06:51] LABS: BLOOD UREA NITROGEN 15 MG/DL (9-23); CALCIUM LEVEL 8.8 MG/DL (8.5-10.1); CARBON DIOXIDE LEVEL 23 MMOL/L (20-31); CHLORIDE LEVEL 105 MMOL/L (98-107); CREATININE FOR GFR 0.93 MG/DL (0.55-1.30); GLOMERULAR FILTRATION RATE > 60.0 (>51); GLUCOSE, FASTING 93 MG/DL (60-100); POTASSIUM SERUM 4.2 MMOL/L (3.5-5.1); SODIUM LEVEL 137 MMOL/L (136-145)
[2023-07-13 08:00] VITALS: BP 118/66
[2023-07-13] MEDS: ENOXAPARIN 30MG/0.3ML SYRINGE (J1650 PER 10MG) SC SCH (08:37)
[2023-07-13] MEDS: ALVIMOPAN 12 MG CAPSULE (ENTEREG) PO SCH (08:38)
[2023-07-13] MEDS: GABAPENTIN 300 MG CAP PO SCH ×3 (08:38→19:51)
[2023-07-13] MEDS: SENOKOT S TAB PO SCH ×2 (08:39→19:46)
[2023-07-13 09:00] VITALS: BP 118/66
[2023-07-13] MEDS ORDERED: CARD40TA PO (09:55)
[2023-07-13] MEDS ORDERED: SELF1KIT MC (09:55)
[2023-07-13 14:00] VITALS: BP 150/68; TEMP 97.9; TEMP 98.9; O2SAT 94
[2023-07-13] MEDS: PANTOPRAZOLE 40MG VIAL IV SCH (14:47)
[2023-07-13 21:43] VITALS: BP 164/86; TEMP 97.2; O2SAT 96
[2023-07-13] MEDS ORDERED: RAMELTEON 8 MG TAB (ROZEREM) PO PRN (22:15)
[2023-07-14] MEDS: ACETAMINOPHEN TAB 650MG DOSE (2X325MG) PO PRN (02:00)
[2023-07-14] MEDS ORDERED: CALCIUM CARBONATE 500 MG CHEW U/D PO PRN (03:50)
[2023-07-14 05:05] VITALS: BP 119/60; TEMP 98.1; O2SAT 96
[2023-07-14 07:22] LABS: BASO # 0.1 10^3/uL (0.0-0.2); BASO % 0.6 % (0.0-1.0); EOS # 0.7 10^3/uL (0.0-0.5); EOS % 6.1 % (0.0-3.0); HEMATOCRIT 38.4 % (36.0-47.0); HEMOGLOBIN 12.5 g/dl (12.0-15.5); LYMPH # 2.3 10^3/uL (1.5-5.0); LYMPH % 19.7 % (24.0-44.0); MEAN CORPUSCULAR HEMOGLOBIN 30.3 pg (27.0-33.0); MEAN CORPUSCULAR HGB CONC 32.6 g/dl (32.0-36.5); MONO # 0.7 10^3/uL (0.0-0.8); MONO % 6.3 % (2.0-8.0); NEUTROPHILS # 7.7 10^3/uL (1.5-8.5); NEUTROPHILS % 66.9 % (36.0-66.0); PLATELET COUNT, AUTOMATED 219 10^3/uL (150-450); RED BLOOD COUNT 4.13 10^6/uL (4.00-5.40); WHITE BLOOD COUNT 11.5 10^3/uL (4.0-10.0)
[2023-07-14 09:00] VITALS: BP 140/62
[2023-07-14] MEDS: dilTIAZem 30 MG TAB PO SCH (09:00)
[2023-07-14] MEDS ORDERED: MELO7.5T35 PO (09:53)
[2023-07-14] MEDS: GABAPENTIN 300 MG CAP PO SCH (09:58)
[2023-07-14] MEDS: SENOKOT S TAB PO SCH (09:58)
[2023-07-14] MEDS: ENOXAPARIN 30MG/0.3ML SYRINGE (J1650 PER 10MG) SC SCH (09:58)
== END 2023-07-14 14:14 | disposition home health service (06) | DRG 223 ==
LOC: M OR 06:44 → M MS5PR 12:30 → M ICU 07-11 21:02 → M MSPAV 07-12 23:15
PROVIDERS: ADMIT Surgery; ATTEND Surgery
PROC: 0DBB4ZZ Excision of Ileum, Percutaneous Endoscopic Approach (ICD-10-PCS; 2023-07-10)
PROC: 0DNU4ZZ Release Omentum, Percutaneous Endoscopic Approach (ICD-10-PCS; principal; 2023-07-10 07:30)
DX: Z43.2 Encounter for attention to ileostomy (principal); F11.20 Opioid dependence, uncomplicated; I10 Essential (primary) hypertension; I47.1 Supraventricular tachycardia; K66.0 Peritoneal adhesions (postprocedural) (postinfection); J44.9 Chronic obstructive pulmonary disease, unspecified; G89.29 Other chronic pain; M54.9 Dorsalgia, unspecified; I16.0 Hypertensive urgency; F32.A Depression, unspecified; K59.00 Constipation, unspecified; E87.6 Hypokalemia; F17.200 Nicotine dependence, unspecified, uncomplicated; Z68.1 Body mass index [BMI] 19.9 or less, adult

== ENCOUNTER → 2023-11-01 | Outpatient (REF) | payer OTHER, MEDICAID ==
[~2023-11-01] MED LIST changes: +CARD40TA PO; +MELO7.5T35 PO; +SELF1KIT MC; -cefoTEtan DISODIUM 2 GM in D5W MINI-BAG PLUS 50 ML IV ONE
[2023-11-01 17:43] LABS: BASO % 0.5 % (0.0-1.0); EOS # 0.2 10^3/uL (0.0-0.5); EOS % 2.1 % (0.0-3.0); HEMATOCRIT 43.2 % (36.0-47.0); HEMOGLOBIN 14.4 g/dl (12.0-15.5); LYMPH # 2.2 10^3/uL (1.5-5.0); LYMPH % 28.5 % (24.0-44.0); MEAN CORPUSCULAR HEMOGLOBIN 30.8 pg (27.0-33.0); MEAN CORPUSCULAR HGB CONC 33.3 g/dl (32.0-36.5); MEAN CORPUSCULAR VOLUME 92.3 fl (80.0-96.0); MONO # 0.4 10^3/uL (0.0-0.8); MONO % 5.7 % (2.0-8.0); NEUTROPHILS # 4.8 10^3/uL (1.5-8.5); NEUTROPHILS % 62.9 % (36.0-66.0); PLATELET COUNT, AUTOMATED 251 10^3/uL (150-450); RED BLOOD COUNT 4.68 10^6/uL (4.00-5.40); WHITE BLOOD COUNT 7.7 10^3/uL (4.0-10.0)
[2023-11-01 18:08] LABS: ALBUMIN 3.6 G/DL (3.2-5.2); ALKALINE PHOSPHATASE 68 U/L (46-116); ALT/SGPT 18 U/L (7.0-40); AST/SGOT 15 U/L (<34); BILIRUBIN,TOTAL 0.3 MG/DL (0.3-1.2); BLOOD UREA NITROGEN 21 MG/DL (9-23); CALCIUM LEVEL 9.1 MG/DL (8.5-10.1); CARBON DIOXIDE LEVEL 30 MMOL/L (20-31); CHLORIDE LEVEL 106 MMOL/L (98-107); CHOLESTEROL LEVEL 155 MG/DL (<200); CHOLESTEROL RISK RATIO 2.12 (<5); CREATININE FOR GFR 0.57 MG/DL (0.55-1.30); GLOMERULAR FILTRATION RATE > 60.0 (>51); GLUCOSE, FASTING 73 MG/DL (60-100); HDL CHOLESTEROL 72.8 MG/DL (>40); LDL CHOLESTEROL 66.4 MG/DL (<100); MAGNESIUM LEVEL 1.7 MG/DL (1.8-2.4); NON-HDL-C 82.2 MG/DL; POTASSIUM SERUM 4.4 MMOL/L (3.5-5.1); SODIUM LEVEL 141 MMOL/L (136-145); TOTAL PROTEIN 6.4 G/DL (5.7-8.2); TRIGLYCERIDES LEVEL 79 MG/DL (<150)
== END ==
LOC: M LAB REF 16:26
PROVIDERS: ATTEND Nurse Practitioner Family
DX: R03.0 Elevated blood-pressure reading, without diagnosis of hypertension (principal); E83.42 Hypomagnesemia; E78.5 Hyperlipidemia, unspecified

== ENCOUNTER → 2024-03-28 | Outpatient (REF) | payer OTHER ==
[~2024-03-28] MED LIST changes: +DOXY-323 PO; -DOXY-443 PO; +FLUO-365 PO; -FLUO20CA22 PO; +ONDA-282 PO; -ONDA4TAB6 PO
[2024-03-28 19:29] LABS: BASO # 0.1 10^3/uL (0.0-0.2); EOS # 0.2 10^3/uL (0.0-0.5); EOS % 2.9 % (0.0-3.0); HEMATOCRIT 45.5 % (36.0-47.0); HEMOGLOBIN 14.9 g/dl (12.0-15.5); LYMPH # 2.7 10^3/uL (1.5-5.0); LYMPH % 32.1 % (24.0-44.0); MEAN CORPUSCULAR HEMOGLOBIN 30.1 pg (27.0-33.0); MEAN CORPUSCULAR HGB CONC 32.7 g/dl (32.0-36.5); MEAN CORPUSCULAR VOLUME 91.9 fl (80.0-96.0); MONO # 0.5 10^3/uL (0.0-0.8); MONO % 6.2 % (2.0-8.0); NEUTROPHILS # 4.8 10^3/uL (1.5-8.5); NEUTROPHILS % 57.6 % (36.0-66.0); PLATELET COUNT, AUTOMATED 285 10^3/uL (150-450); RED BLOOD COUNT 4.95 10^6/uL (4.00-5.40); WHITE BLOOD COUNT 8.3 10^3/uL (4.0-10.0)
[2024-03-28 20:02] LABS: ALBUMIN 3.6 G/DL (3.2-5.2); ALKALINE PHOSPHATASE 87 U/L (46-116); ALT/SGPT 13 U/L (7.0-40); AST/SGOT 9 U/L (<34); BILIRUBIN,TOTAL 0.2 MG/DL (0.3-1.2); BLOOD UREA NITROGEN 14 MG/DL (9-23); CALCIUM LEVEL 9.4 MG/DL (8.5-10.1); CARBON DIOXIDE LEVEL 32 MMOL/L (20-31); CHLORIDE LEVEL 102 MMOL/L (98-107); CREATININE FOR GFR 0.54 MG/DL (0.55-1.30); GLOMERULAR FILTRATION RATE > 60.0 (>51); GLUCOSE, FASTING 91 MG/DL (60-100); MAGNESIUM LEVEL 1.8 MG/DL (1.8-2.4); POTASSIUM SERUM 4.2 MMOL/L (3.5-5.1); SODIUM LEVEL 139 MMOL/L (136-145); TOTAL PROTEIN 6.7 G/DL (5.7-8.2)
== END ==
LOC: M LAB REF 18:55
PROVIDERS: ATTEND Nurse Practitioner Family
DX: I10 Essential (primary) hypertension (principal)

== ENCOUNTER → 2024-12-04 | Outpatient (REF) | payer OTHER ==
[~2024-12-04] MED LIST changes: -DOXY-323 PO; +DOXY-441 PO; +GABA-1490 PO; -GABA600T4 PO; +SENN-187 PO; -SENN-83 PO
[2024-12-04 14:33] LABS: BASO # 0.1 10^3/uL (0.0-0.2); BASO % 0.7 % (0.0-1.0); EOS # 0.1 10^3/uL (0.0-0.5); EOS % 1.3 % (0.0-3.0); HEMATOCRIT 48.3 % (36.0-47.0); HEMOGLOBIN 15.8 g/dl (12.0-15.5); LYMPH # 1.8 10^3/uL (1.5-5.0); LYMPH % 15.6 % (24.0-44.0); MEAN CORPUSCULAR HEMOGLOBIN 30.2 pg (27.0-33.0); MEAN CORPUSCULAR HGB CONC 32.7 g/dl (32.0-36.5); MEAN CORPUSCULAR VOLUME 92.4 fl (80.0-96.0); MONO # 0.5 10^3/uL (0.0-0.8); MONO % 4.2 % (2.0-8.0); NEUTROPHILS # 8.7 10^3/uL (1.5-8.5); PLATELET COUNT, AUTOMATED 305 10^3/uL (150-450); RED BLOOD COUNT 5.23 10^6/uL (4.00-5.40); WHITE BLOOD COUNT 11.2 10^3/uL (4.0-10.0)
[2024-12-04 15:04] LABS: ALBUMIN 3.8 G/DL (3.2-5.2); ALKALINE PHOSPHATASE 79 U/L (35-104); ALT/SGPT 17 U/L (7.0-40); AST/SGOT 15 U/L (<34); BILIRUBIN,TOTAL 0.3 MG/DL (0.3-1.2); BLOOD UREA NITROGEN 16 MG/DL (9-23); CALCIUM LEVEL 9.6 MG/DL (8.5-10.1); CARBON DIOXIDE LEVEL 27 MMOL/L (20-31); CHLORIDE LEVEL 105 MMOL/L (98-107); CREATININE FOR GFR 0.58 MG/DL (0.55-1.30); GLOMERULAR FILTRATION RATE > 60.0 (>51); GLUCOSE, FASTING 88 MG/DL (60-100); MAGNESIUM LEVEL 1.5 MG/DL (1.8-2.4); POTASSIUM SERUM 4.4 MMOL/L (3.5-5.1); SODIUM LEVEL 142 MMOL/L (136-145); TOTAL PROTEIN 7.1 G/DL (5.7-8.2)
== END ==
LOC: M LAB REF 12:59
PROVIDERS: ATTEND Nurse Practitioner Family
DX: I10 Essential (primary) hypertension (principal)

== ENCOUNTER → 2025-08-25 | Outpatient (REF) | payer OTHER ==
[~2025-08-25] MED LIST changes: -PROZ20CA11 PO; +PROZ20CA12 PO
== END ==
LOC: M LAB REF 16:22
PROVIDERS: ATTEND Nurse Practitioner Family
DX: E83.42 Hypomagnesemia (principal)